=== PATIENT | female | born 1980 | race Caucasian/White ===

== ENCOUNTER → 2018-05-10 14:38 | Outpatient (CLI) | payer BC, SELFPAY ==
[2018-05-11 08:20] LABS: Alanine Aminotransferase 24 U/L (12-78); Albumin Level 3.8 gm/dL (3.4-5.0); Albumin/Globulin Ratio 1.3 (1.1-1.8); Alkaline Phosphatase 81 U/L (46-116); Anion Gap 16.9 mEq/L (5-15); Aspartate Amino Transferase 13 U/L (15-37); Basophils # 0.1 K/mm3 (0-0.2); Basophils % 0.5 % (0.1-2.0); Bilirubin,Total 0.4 mg/dL (0.2-1.0); Blood Urea Nitrogen 10 mg/dL (7-18); Carbon Dioxide 24 mmol/L (21.0-32.0); Chloride 103 mmol/L (98-107); Chol/HDL Ratio 5.2 (1-3.5); Cholesterol 145 mg/dL (140-200); Creatinine Clearance Estimated 176 mL/min (50-200); Creatinine,Serum 0.63 mg/dL (0.55-1.02); Eosinophils # 0.3 K/mm3 (0.0-0.4); Eosinophils % 2.2 % (0.1-12.0); Estimated Glomerular Filt Rate 105 ml/min (>60); GFR (African American) 127 ML/MIN (>60); Glucose 112 mg/dL (74-106); HDL Cholesterol 28 mg/dL (29-89); Hematocrit 44.6 % (37.0-47.0); Hemoglobin 13.9 g/dL (12.2-16.2); LDL Cholesterol 64 mg/dL (0-130); Lymphocytes # 3.1 K/mm3 (0.7-4.5); Mean Corpuscular Hemoglobin 29.7 pg (27.0-31.2); Mean Corpuscular Volume 95.6 fl (81-99); Mean Platelet Volume 8.5 fl (7.4-10.4); Monocytes # 0.5 K/mm3 (0.1-1.0); Monocytes % 4.4 % (1.7-9.3); Neutrophils # 7.3 K/mm3 (1.8-7.8); Neutrophils % 64.9 % (37.0-80.0); Platelet Count 358 K/mm3 (142-424); Potassium 3.9 mmoL/L (3.5-5.1); Red Blood Count 4.67 M/mm3 (4.20-5.40); Red Cell Distribution Width 13.3 % (11.5-17.5); Sodium 140 mmol/L (136-145); T4 (Thyroxine) 9.2 ug/dl (4.7-13.3); Thyroid Stimulating Hormone 2.23 uIU/ml (0.358-3.740); Total Protein,Serum 6.8 gm/dL (6.4-8.2); Triglycerides 263 mg/dL (30-200); VLDL Cholesterol 53 mg/dL (0-40); White Blood Count 11.2 K/mm3 (4.8-10.8)
[2018-05-12 11:45] LABS: Hemoglobin A1C 5.2 % (0.0-7.0)
[2018-05-13 17:08] LABS: Vitamin D 25 Hydroxy 13.8 ng/mL (30.0-100.0)
== END ==
PROVIDERS: PCP Physician Assistant; Visit Provider Physician Assistant
DX: R00.2 Palpitations (principal); R53.83 Other fatigue
CPT/HCPCS: 80053; 80061; 82652; 83036; 84436; 84443; 85025; 93005; 93225; 93226

== ENCOUNTER → 2018-07-15 18:41 | Outpatient (CLI) | payer BC, SELFPAY | PROVIDERS: PCP Physician Assistant; Visit Provider Physician Assistant | DX: G47.33 Obstructive sleep apnea (adult) (pediatric) (principal); R53.83 Other fatigue | CPT/HCPCS: 95806 ==

== ENCOUNTER → 2019-05-02 17:26 | Outpatient (CLI) | payer BC, SELFPAY ==
--- NOTE | 2019-05-02 17:37 | XR_ITS ---
PROCEDURE: XR CHEST 2V CLINICAL HISTORY: SOB COMPARISON: CXR2V XR chest 2V from 11/11/2017 FINDINGS: The cardiomediastinal silhouette and pulmonary vascularity are within normal limits. The lungs are clear without infiltrates, suspicious nodules, or pleural effusions. No acute bony abnormalities. IMPRESSION: No acute findings. Dictated by: Emery Zamudio MD 05/02/2019 18:26 Electronically signed by Emery Zamudio MD in [place] 05/02/2019 18:26
[2019-05-02 17:49] LABS: Basophils # 0.1 K/mm3 (0-0.2); Basophils % 0.4 % (0.1-2.0); Eosinophils # 0.4 K/mm3 (0.0-0.4); Hematocrit 40.5 % (37.0-47.0); Hemoglobin 14.2 g/dL (12.2-16.2); Lymphocytes % 30.4 % (10-50); Mean Corpuscular HGB Conc 35.1 g/dL (31.8-35.4); Mean Corpuscular Hemoglobin 30.5 pg (27.0-31.2); Mean Platelet Volume 7.5 fl (7.4-10.4); Monocytes # 0.6 K/mm3 (0.1-1.0); Monocytes % 4.4 % (1.7-9.3); Neutrophils # 8.1 K/mm3 (1.8-7.8); Neutrophils % 61.8 % (37.0-80.0); Platelet Count 345 K/mm3 (142-424); Red Blood Count 4.66 M/mm3 (4.20-5.40); Red Cell Distribution Width 13.1 % (11.5-17.5)
[2019-05-02 20:48] LABS: Alanine Aminotransferase 14 U/L (12-78); Albumin Level 3.6 gm/dL (3.4-5.0); Albumin/Globulin Ratio 1.3 (1.1-1.8); Alkaline Phosphatase 71 U/L (46-116); Anion Gap 15.9 mEq/L (5-15); Aspartate Amino Transferase 7 U/L (15-37); Bilirubin,Total 0.2 mg/dL (0.2-1.0); Blood Urea Nitrogen 12 mg/dL (7-18); Calcium 8.9 mg/dL (8.5-10.1); Carbon Dioxide 24 mmol/L (21.0-32.0); Chloride 104 mmol/L (98-107); Chol/HDL Ratio 5.9 (1-3.5); Cholesterol 154 mg/dL (140-200); Creatinine,Serum 0.74 mg/dL (0.55-1.02); Estimated Glomerular Filt Rate 86 ml/min (>60); GFR (African American) 105 ML/MIN (>60); Globulin 2.8 gm/dl (1.3-3.2); Glucose 115 mg/dL (74-106); HDL Cholesterol 26 mg/dL (29-89); Potassium 3.9 mmoL/L (3.5-5.1); Sodium 140 mmol/L (136-145); Thyroid Stimulating Hormone 2.61 uIU/ml (0.358-3.740); Total Protein,Serum 6.4 gm/dL (6.4-8.2)
[2019-05-02 20:50] LABS: Triglycerides 487 mg/dL (30-200)
[2019-05-05 06:27] LABS: Vitamin D 25 Hydroxy 12.4 ng/mL (30.0-100.0)
== END ==
PROVIDERS: Visit Provider Nurse Practitioner Family
DX: R53.83 Other fatigue (principal); R06.02 Shortness of breath; E55.9 Vitamin D deficiency, unspecified
CPT/HCPCS: 36415; 71046; 80053; 80061; 82652; 84439; 84443; 85025

== ENCOUNTER → 2019-06-02 09:10 | Outpatient (CLI) | payer BC, SELFPAY ==
--- NOTE | 2019-06-02 09:14 | XR_ITS ---
PROCEDURE: XR HAND RT MIN 3V CLINICAL INDICATION: Rt thumb trigger finger COMPARISON: No exams were available for comparison FINDINGS: No fracture or dislocation. No lytic or blastic change. There is normal mineralization. The joint spaces are well-preserved. No significant degenerative/arthritic changes. No erosive changes evident. Other findings:None. IMPRESSION: No acute findings. Dictated by: Emery Zamudio MD 06/02/2019 10:33 Electronically signed by Emery Zamudio MD in [place] 06/02/2019 10:33
== END ==
PROVIDERS: PCP Physician Assistant; Visit Provider Orthopaedic Surgery
DX: M65.311 Trigger thumb, right thumb (principal)
CPT/HCPCS: 73130

== ENCOUNTER → 2019-06-24 11:25 | Outpatient (CLI) | payer BC, SELFPAY ==
[2019-06-24 13:30] LABS: Hemoglobin A1C 5.4 % (4.0-6.0)
== END ==
PROVIDERS: Visit Provider Nurse Practitioner Family
DX: R73.9 Hyperglycemia, unspecified (principal)
CPT/HCPCS: 36415; 83036

== ENCOUNTER → 2022-04-22 10:49 | Outpatient (CLI) | payer BC, SELFPAY ==
--- NOTE | 2022-04-22 11:00 | XR_ITS ---
FINAL REPORT CLINICAL HISTORY: RT HIP PAIN. no trauma COMPARISON: November 11, 2017 FINDINGS: RIGHT HIP Two views of the right hip including an AP pelvis demonstrate no acute fracture or dislocation. The joint spaces appear normal. The visualized bony structures are well aligned. There are postoperative changes in the abdomen. IMPRESSION: No acute bony abnormality. Reviewed, Interpreted and Dictated by Davie Miller III, MD Transcribed by Clarisse Gordon Authenticated and [facility]
== END ==
LOC: RAD 10:54
PROVIDERS: PCP Family Medicine; Visit Provider Family Medicine
DX: M25.551 Pain in right hip (principal)
CPT/HCPCS: 73502

== ENCOUNTER → 2022-05-13 15:53 | Outpatient (CLI) | payer BC, SELFPAY ==
--- NOTE | 2022-05-13 16:02 | CT_ITS ---
PROCEDURE INFORMATION: Exam: CT Abdomen And Pelvis Without And With Contrast Exam date and time: 05/13/2022 6:13 PM Age: 42 years old Clinical indication: Abdominal pain; Localized; Right lower quadrant (rlq); Additional info: Lower R quad abdominal pain TECHNIQUE: Imaging protocol: Computed tomography of the abdomen and pelvis without and with contrast. Radiation optimization: All CT scans at this facility use at least one of these dose optimization techniques: automated exposure control; mA and/or kV adjustment per patient size (includes targeted exams where dose is matched to clinical indication); or iterative reconstruction. Contrast material: ISO 370; Contrast volume: 75 ml; Contrast route: INTRAVENOUS (IV); COMPARISON: CT ABDOMEN PELVIS WO CON 07/17/2019 3:58 AM FINDINGS: Tubes, catheters and devices: None noted. Lungs: Lung bases appear clear. Heart: No significant coronary calcifications. No cardiomegaly. No significant pericardial effusion. Liver: Normal. No mass. Gallbladder and bile ducts: Normal. No calcified stones. No ductal dilation. Pancreas: Normal. No ductal dilation. Spleen: Normal. No splenomegaly. Adrenal glands: Normal. No mass. Kidneys and ureters: Normal. No hydronephrosis. Stomach and bowel: Cecal diverticulitis. 5 cm phlegmonous area. No drainable abscess. No free peritoneal perforation. No obstruction. No mucosal thickening. Appendix: Appendix is well visualized. No evidence of appendicitis. Intraperitoneal space: Unremarkable. No free air. No significant fluid collection. Retroperitoneal space: No significant retroperitoneal inflammatory changes are noted. Vasculature: Unremarkable. No abdominal aortic aneurysm. Lymph nodes: Unremarkable. No enlarged lymph nodes. Urinary bladder: Unremarkable as visualized. Reproductive: Unremarkable as visualized. Bones/joints: Unremarkable. No acute fracture. Soft tissues: Hernia repair with mesh. IMPRESSION: 1. Cecal diverticulitis. No free peritoneal perforation or drainable abscess noted. 2. Umbilical hernia repair with mesh. 3. No CT evidence of appendicitis.
[2022-05-13 17:35] LABS: Basophils # 0.1 K/mm3 (0-0.2); Basophils % 0.6 % (0.1-2.0); Eosinophils # 0.4 K/mm3 (0.0-0.4); Eosinophils % 2.3 % (0.1-12.0); Hematocrit 43.5 % (37.0-47.0); Hemoglobin 14.6 g/dL (12.2-16.2); Lymphocytes # 3.6 K/mm3 (0.7-4.5); Lymphocytes % 21.2 % (10-50); Mean Corpuscular HGB Conc 33.6 g/dL (31.8-35.4); Mean Corpuscular Hemoglobin 30.2 pg (27.0-31.2); Mean Corpuscular Volume 90.1 fl (81-99); Mean Platelet Volume 7.9 fl (7.4-10.4); Monocytes % 5.8 % (1.7-9.3); Neutrophils # 11.8 K/mm3 (1.8-7.8); Neutrophils % 70.1 % (37.0-80.0); Platelet Count 390 K/mm3 (142-424); Red Blood Count 4.83 M/mm3 (4.20-5.40); Red Cell Distribution Width 13.5 % (11.5-17.5); White Blood Count 16.8 K/mm3 (4.8-10.8)
[2022-05-13 17:39] LABS: MANUAL DIFFERENTIAL MANUAL DIFFERENTIAL (MANUAL DIFF)
[2022-05-13 18:56] LABS: Eosinophils % 1 % (0-3); Lymphocytes % 26 % (10-50); Monocytes % 3 % (2-9); Neutrophils % 70 % (42-76); Platelet Estimate Normal; RBC Morphology Normal; Total Cells Counted 100
== END ==
LOC: RAD 15:54
PROVIDERS: PCP Family Medicine; Visit Provider Family Medicine
DX: R10.31 Right lower quadrant pain (principal)
CPT/HCPCS: 36415; 74178; 85007; 85025; Q9967

== ENCOUNTER 2022-07-19 11:38 | Emergency (ER) | payer BC, SELFPAY ==
--- NOTE | 2022-07-19 11:34 | ECG_ITS ---
APPROVED REPORT Exam: Resting ECG HR:95 bpm ECG Measurements Heart Rate 95 AXES FL 157 P 66 QRSd 86 QRS 67 QT 326 T 34 QTc 379 Conclusion SINUS RHYTHM NORMAL ECG UNCONFIRMED REPORT Electronically signed by : Phi Khan MD 07/21/2022 03:08:15
[2022-07-19 11:49] VITALS: BMI 34.0
--- NOTE | 2022-07-19 11:49 | XR_ITS ---
PROCEDURE INFORMATION: Exam: XR Chest Exam date and time: 07/19/2022 12:18 PM Age: 42 years old Clinical indication: Pain; Chest pressure; Additional info: Chest pain TECHNIQUE: Imaging protocol: Radiologic exam of the chest. Views: 1 view. COMPARISON: CR XR CHEST 2V 05/02/2019 5:39 PM FINDINGS: Lungs: Unremarkable. No consolidation. Pleural spaces: Unremarkable. No pleural effusion. No pneumothorax. Heart/Mediastinum: Cardiac silhouette appears borderline enlarged on this portable chest. Bones/joints: Unremarkable. IMPRESSION: Borderline cardiomegaly otherwise negative chest.
[2022-07-19 11:56] LABS: Basophils # 0.2 K/mm3 (0-0.2); Basophils % 1.9 % (0.1-2.0); Eosinophils # 0.6 K/mm3 (0.0-0.4); Eosinophils % 4.4 % (0.1-12.0); Hematocrit 45.4 % (37.0-47.0); Hemoglobin 15.9 g/dL (12.2-16.2); Lymphocytes # 3.3 K/mm3 (0.7-4.5); Lymphocytes % 26.6 % (10-50); Mean Corpuscular Hemoglobin 30.3 pg (27.0-31.2); Mean Corpuscular Volume 86.6 fl (81-99); Mean Platelet Volume 7.4 fl (7.4-10.4); Monocytes # 0.6 K/mm3 (0.1-1.0); Monocytes % 4.9 % (1.7-9.3); Neutrophils # 7.8 K/mm3 (1.8-7.8); Neutrophils % 62.2 % (37.0-80.0); Platelet Count 427 K/mm3 (142-424); Red Blood Count 5.24 M/mm3 (4.20-5.40); Red Cell Distribution Width 13.2 % (11.5-17.5); White Blood Count 12.5 K/mm3 (4.8-10.8)
[2022-07-19 11:57] LABS: Chloride 108 mmol/L (98-107); Potassium 4.2 mmoL/L (3.5-5.1); Sodium 140 mmol/L (136-145)
[2022-07-19 12:00] LABS: Blood Urea Nitrogen 11 mg/dl (7-17); Creatinine Clearance Estimated 170 mL/min (50-200); Estimated Glomerular Filt Rate 109 ml/min (>60); GFR (African American) 131 ML/MIN (>60)
[2022-07-19 12:01] LABS: Anion Gap 11.2 mEq/L (5-15); Calcium 9.5 mg/dl (8.4-10.2); Carbon Dioxide 25 mmol/L (22.0-30.0); Glucose 120 mg/dl (74-100)
[2022-07-19 12:02] VITALS: BP 209/133; PULSE 91; RESP 18; TEMP 36.8; O2SAT 98; BMI 34.0
[2022-07-19 12:13] LABS: Troponin I < 0.01 ng/ml (0.00-0.034)
--- NOTE | 2022-07-19 12:17 | CT_ITS ---
PROCEDURE INFORMATION: Exam: CT Head Without Contrast Exam date and time: 07/19/2022 12:36 PM Age: 42 years old Clinical indication: Pain; Other: Hypertensive headache; Additional info: Hypertensive urgency TECHNIQUE: Imaging protocol: Computed tomography of the head without contrast. Radiation optimization: All CT scans at this facility use at least one of these dose optimization techniques: automated exposure control; mA and/or kV adjustment per patient size (includes targeted exams where dose is matched to clinical indication); or iterative reconstruction. REPORTING DATA: Count of CT and Cardiac NM exams in prior 12 months: This patient has received [address] and 0 known cardiac nuclear medicine studies in the 12 months prior to the current study. COMPARISON: No relevant prior studies available. FINDINGS: Brain: Normal. No hemorrhage. No mass effect. Cortical sulci and white matter are unremarkable for age Cerebral ventricles: No ventriculomegaly. Paranasal sinuses: Visualized sinuses are unremarkable. No fluid levels. Mastoid air cells: Visualized mastoid air cells are well aerated. Bones/joints: Unremarkable. Soft tissues: Unremarkable. IMPRESSION: Normal CT examination of the head.
--- NOTE | 2022-07-19 12:35 | PC.NURSE ---
Pt to CT scan for head imaging
[2022-07-19 13:48] VITALS: BP 166/101; PULSE 77; RESP 14; TEMP 36.6; O2SAT 97
--- NOTE | 2022-07-19 14:03 | HMH.EDGENADL ---
Discharge Plan Disposition Patient Disposition: Home, Self-Care Condition: Fair Prescriptions Prescriptions: No Action ergocalciferol (vitamin D2) 1,250 mcg (50,000 unit) capsule 50,000 unit PO QWEEK Qty: 12 0RF cetirizine 10 MG tablet 10 mg PO DAILY fluticasone propionate 16 GM spray,suspension 1 spray intranasal QDAY Rx Instructions: administer into each nostril levofloxacin 500 MG tablet 500 mg PO DAILY Qty: 9 0RF Referrals Follow up/Referrals: Lon Suarez MD [Primary Care Provider] - See instructions Activity Restrictions/Add. Instructions Additional Instructions/Restrictions: Please call Dr. Suarez's office to talk about your blood pressure. Please take your blood pressure twice daily until you see them so that they can see if they need to start you on medication. Clinical Impressions Clinical Impression: Hypertension Instructions Patient Instructions: Essential Hypertension Discharge ED Provider: Edmund Varma General Adult HPI General Chief complaint: Chest Pain Stated complaint: CP Time Seen by Provider: 07/19/22 12:00 Mode of Arrival: Ambulatory Source of Information: Patient Limitations: No Limitations Description of Symptoms (Recalled from ER Triage Doc. by RN): Pt c/o awakening with severe headache this am, dizziness, left arm weakness and idiopathic hypertension; no significant PMHx, dx w +Strep on 07/15 History of Present Illness HPI narrative: Patient is a 42-year-old female with no pertinent past medical history who presents with concern for headache and dizziness. She states she also felt like her left arm was little weak at that time. She says that she was diagnosed with strep recently has been being treated for this. She says that she checked her blood pressure because she felt dizzy and her blood pressure was in the 200s so she came in for evaluation. She says that it is mildly improving. Denies any chest pain or shortness of breath. Denies any urinary symptoms. Denies any visual disturbance. Says that her left arm weakness has resolved. Related Data Home Medications Medication Instructions Recorded Confirmed cetirizine 10 mg tablet 10 mg PO DAILY allergies 06/19/19 06/30/19 fluticasone propionate 50 1 spray intranasal QDAY allergies 06/19/19 06/30/19 mcg/actuation nasal spray,suspension Previous Rx's Medication Instructions Recorded levofloxacin 500 mg tablet 500 mg PO DAILY #9 tabs 07/17/19 ergocalciferol (vitamin D2) 1,250 50,000 unit PO QWEEK Supplement 08/07/19 mcg (50,000 unit) capsule #12 caps Allergies Allergy/AdvReac Type Severity Reaction Status Date / Time sulfamethoxazole Allergy Mild Hives Verified 06/30/19 10:49 [From Bactrim] trimethoprim [From Bactrim] Allergy Mild Hives Verified 06/30/19 10:[facility] Disclaimer: The information contained in this section may have been updated after the patient was seen, as this information can be updated by other users. Medical History (Updated 07/19/22 @ 13:30 by Edmund Varma MD) Vitamin D deficiency Social History Smoking Status: Never smoker second hand exposure: Yes alcohol intake: never substance use type: denies use current occupational status: employed Travel in the last 8 weeks: None household members: spouse and family housing: house current occupation: [employer] caffeine: Yes ROS Obtained: Yes All systems reviewed & no additional complaints except as documented Physical Exam General General appearance: alert and in no apparent distress Head Head exam: atraumatic, normocephalic and normal inspection Eye Eye exam: Present normal appearance and PERRL ENT ENT exam: Present normal exam, mucous membranes moist and normal external ear exam Neck Neck exam: Present normal inspection and trachea midline Chest Chest inspection: Present normal inspection and symmetric chest wall rise Respiratory Respirator
== END 2022-07-19 13:49 | disposition home or self-care (01) ==
PROVIDERS: Emergency Provider Student in an Organized Health Care Education/Training Program; PCP Family Medicine
DX: R07.9 Chest pain, unspecified (principal); I10 Essential (primary) hypertension
CPT/HCPCS: 70450; 71045; 80048; 84484; 85025; 93005; 96360; 96374; 96375; 99285

== ENCOUNTER → 2022-07-28 13:04 | Outpatient (CLI) | payer BC, SELFPAY ==
--- NOTE | 2022-07-28 14:43 | CA_ITS ---
APPROVED REPORT Exam: Exercise Treadmill Technologist: Kaylie Crain, Ht: 5 ft 4 in Wt: 211 lbs BSA: 2.00 m2 HR: 108 bpm BP: 125/80 mmHg Medical History Medications: Losartan-HCTZ,,,,, Stress Test Details Test: Magdy HR Resting HR: 96 bpm Max Heart Rate (APMHR): 176.542992 bpm Max HR Achieved: 146 bpm Target HR (85% APMHR): 149.321130 bpm % of APMHR: 82.95 Recovery HR: 109 bpm BP Resting BP: 125.0/83.0 mmHg Max BP: 230.0/75.0 mmHg Recovery BP: 141.0/82.0 mmHg ECG Resting ECG: Sinus tach, rightward axis, ST-T abns inferiorly & laterally Clinical Exercise duration: 07:02 min Highest Stage Achieved: Exercise capacity: 10.1 METs Stress ECG Conclusion Walked 7:02 into stage III of Magdy Protocol Max HR: 146 % of PM: 83% Max BP: 230/75 METs: 10.1 Test stopped due to: SOA Symptoms: No CP. Arrhythmias/Ectopy: None. ST-T Changes: Compared to baseline there is minimal if any changes. Conclusion: Probably normal GXT but with decreased sensitivity due to baseline ECG abnormalaties. GXT only (no imaging) Test Summary REST . . . . . . . Sitting REST . . . . . . . Standing REST 10:38 0.0 0.0 96 . 125/ 83 . . Stage 1 01:00 10.0 1.7 111 . . . . Stage 1 02:00 10.0 1.7 119 . . . . Stage 1 03:00 10.0 1.7 121 . 196/ 80 . . Stage 2 01:00 12.0 2.5 127 . . . . Stage 2 02:00 12.0 2.5 131 . . . . Stage 2 03:00 12.0 2.5 135 . 230/ 75 . . Stage 3 01:00 14.0 3.4 145 . . . . Stage 3 01:02 14.0 3.4 145 . . . Stop exercise at 07:02 RECOVERY 01:00 0.0 0.0 133 . . . . RECOVERY 02:00 0.0 0.0 118 . . . . RECOVERY 03:00 0.0 0.0 113 . 119/ 80 . . RECOVERY 04:00 0.0 0.0 111 . 144/ 87 . . RECOVERY 05:00 0.0 0.0 108 . 141/ 82 . . RECOVERY 05:18 0.0 0.0 108 . 141/ 82 . . Electronically signed by : Joshua Bello MD 08/04/2022 08:44:09
== END ==
LOC: RT 13:04
PROVIDERS: PCP Nurse Practitioner Family; Visit Provider Nurse Practitioner Family
DX: R94.31 Abnormal electrocardiogram [ECG] [EKG] (principal); I10 Essential (primary) hypertension; E78.5 Hyperlipidemia, unspecified
CPT/HCPCS: 93017; 93306

== ENCOUNTER 2023-06-29 17:50 | Outpatient (CLI) | payer BC, SELFPAY | END 2023-06-29 23:59 | LOC: LAB.DROPOF 17:50 | PROVIDERS: PCP Student in an Organized Health Care Education/Training Program; Visit Provider Student in an Organized Health Care Education/Training Program | DX: M25.551 Pain in right hip (principal); M25.552 Pain in left hip; R05.9 Cough, unspecified; B96.89 Other specified bacterial agents as the cause of diseases classified elsewhere | CPT/HCPCS: 87086 ==

== ENCOUNTER 2023-10-23 14:28 | Emergency (ER) | payer BC, SELFPAY ==
[2023-10-23 14:40] VITALS: BP 149/96; PULSE 91; RESP 18; TEMP 36.6; O2SAT 95; BMI 34.0
--- NOTE | 2023-10-23 15:05 | ED_ITS ---
Discharge Plan Disposition Patient Disposition: Home, Self-Care Condition: Good Prescriptions Prescriptions: New phenazopyridine [Pyridium] 200 mg tablet 200 mg PO Q8H 2 Days Qty: 6 0RF ciprofloxacin HCl [Cipro] 500 mg tablet 500 mg PO BID 7 Days Qty: 14 0RF No Action phentermine 37.5 mg tablet 37.5 mg PO DAILY 30 Days Qty: 30 0RF Rx Instructions: must administer 30 minutes before or 1-2 hours after breakfast paroxetine HCl 12.5 mg tablet extended release 24 hr 12.5 mg PO DAILY 30 Days Qty: 30 2RF escitalopram oxalate 20 mg tablet 20 mg PO DAILY Referrals Follow up/Referrals: Charisma Vinson APRN [Primary Care Provider] - See instructions Activity Restrictions/Add. Instructions Additional Instructions/Restrictions: Drink plenty of fluids. Take tylenol or ibuprofen for pain or fever. Take the medications as directed. Follow up with your regular doctor. GO TO THE ER FOR ANY WORSENING SYMPTOMS The pyridium will make your urine turn orange, this is an expected side effect. It will stain your clothes if it comes into contact with them. We will culture the urine. That will tell what bacteria is causing your infection and which antibiotics will treat it best. Sometimes the first antibiotic we prescribe turns out to not work against different bacteria. So, make sure you follow up within 3 days if you are not getting better. Return by tomorrow if your symptoms are not improving. Clinical Impressions Clinical Impression: UTI (urinary tract infection) Qualifiers: Urinary tract infection type: acute cystitis Hematuria presence: without hematuria Qualified Code(s): N30.00 - Acute cystitis without hematuria Instructions Patient Instructions: Urinary Tract Infection, DI for Urinary Tract Infection (UTI) Discharge ED Provider: Shaan Estrella [facility] General Stated complaint: pain left side Mode of Arrival: Ambulatory Source of Information: Patient Limitations: No Limitations Time Seen by Provider: 10/23/23 15:01 Description of Symptoms (Recalled from Triage Doc. by RN): Pt's symptoms are left flank pain. HEENT Symptoms (Recalled from RN notes): No Resp Symptoms (Recalled from RN notes): No Skin Symptoms (Recalled from RN notes): No MS Symptoms (Recalled from RN notes): No Functional Status (Recalled from RN notes): n/a Related Data Home Medications Medication Instructions Recorded Confirmed escitalopram oxalate 20 mg tablet 20 mg PO DAILY 06/29/23 10/23/23 Previous Rx's Medication Instructions Recorded paroxetine HCl 12.5 mg 12.5 mg PO DAILY 30 days #30 tabs 08/27/23 tablet,extended release 24 hr phentermine 37.5 mg tablet 37.5 mg PO DAILY 30 days #30 tabs 08/27/23 ciprofloxacin HCl 500 mg tablet 500 mg PO BID 7 days #14 tabs 10/23/23 (Cipro) phenazopyridine 200 mg tablet 200 mg PO Q8H 2 days #6 tabs 10/23/23 (Pyridium) Allergies Allergy/AdvReac Type Severity Reaction Status Date / Time sulfamethoxazole Allergy Mild Hives Verified 10/23/23 14:58 [From Bactrim] trimethoprim [From Bactrim] Allergy Mild Hives Verified 10/23/23 14:58 cefdinir AdvReac Hypertensio Verified 10/23/23 14:58 n Worker's Comp Is this a Worker's Comp case?: No [facility] Disclaimer: The information contained in this section may have been updated after the patient was seen, as this information can be updated by other users. Medical History Fatigue HLD (hyperlipidemia) Abnormal electrocardiogram [ECG] [EKG] HTN (hypertension), benign Hypertension Pyelonephritis of left kidney Trigger finger of right thumb Vitamin D deficiency Pleurisy Trochanteric bursitis, right hip Surgical History No significant past surgical history Family History Other No significant family history Social History Smoking Status: Never smoker second hand exposure: Yes alcohol intake: never substance use type: denies use current occupational status: employed Travel in the last 8 weeks: None household members: spouse and family housing: house current occupation: [employer] caffeine: Yes ROS Obtained: Yes All systems reviewed & no additional complaints except as documented Constitutional Constitutional: Reports system reviewed and no additional complaints, except as documented, Denies chills and Denies fever(s) Eyes Eyes: Denies eye discharge ENT Ears, Nose, Mouth, and Throat: Denies dysphagia, Denies sore throat and Denies throat swelling Cardiovascular Cardiovascular: Denies chest pain and Denies dyspnea Respiratory Respiratory: Denies chest congestion, Denies cough and Denies dyspnea Gastrointestinal Gastrointestingal: Denies abdominal pain, constipation, diarrhea, dysphagia, nausea or vomiting Genitourinary Female Genitourinary: Reports as per HPI, Reports dysuria, Reports urinary frequency, Denies urinary incontinence, Reports urinary hesitancy and Reports urinary urgency Musculoskeletal Musculoskeletal: Denies arthralgias and Reports back pain Integumentary/Breasts Skin/Breast: Denies rash Neurologic Neurologic: Denies paresthesias Allergic/Immunologic Allergic/Immunologic: Denies throat swelling Physical Exam General General appearance: alert and in no apparent distress Head Head exam: atraumatic and normocephalic Eye Eye exam: Present normal appearance, PERRL and EOMI ENT ENT exam: Present normal exam, mucous membranes moist, TM's normal bilaterally and normal external ear exam Neck Neck exam: Present normal inspection, full ROM and trachea midline; Absent tenderness, meningismus or lymphadenopathy Chest Chest inspection: Present normal inspection and symmetric chest wall rise; Absent tenderness Respiratory Respiratory exam: Present normal lung sounds bilaterally; Absent respiratory distress, wheezes or stridor Cardiovascular Cardiovascular exam: Present regular rate, normal rhythm and normal heart sounds Abdominal Exam Abdominal exam: Present soft and normal bowel sounds; Absent distention, tenderness, guarding, rebound, rigidity, incision, psoas sign, obturator sign, heel tap sign, Felipe's sign, Rovsing's sign or tenderness at McBurney's Point Extremities Exam Extremities exam: Present normal inspection, full ROM and normal capillary refill; Absent tenderness, edema, joint swelling, calf tenderness or cyanosis Back Exam Back exam: Present normal inspection and full ROM; Absent tenderness, CVA tenderness (R) or CVA tenderness (L) Neurological Exam Neurological exam: Present alert, oriented X3 and normal gait Psychiatric Psychiatric exam: Present normal affect and normal mood Skin Skin exam: Present warm, dry, intact and normal color Lymphatic Lymphatic Findings: no adenopathy Medical Decision Making Medical Records Medical records reviewed: No I reviewed the patient's medical records. Brandon Inquiry Pt receiving controlled substance: No Vital Signs: 10/23/23 14:40 Temperature 97.9 F Temperature Source Oral Pulse Rate [Right Radial] 91 H Respiratory Rate 18 Blood Pressure [Right Arm] 149/96 H Blood Pressure Mean [Right Arm] 113 Blood Pressure Source [Right Arm] Automatic Cuff Blood Pressure Position [Right Arm] Sitting 02 Sat by Pulse Oximetry 95 Oxygen Delivery Method Room Air Lab Data Lab results reviewed: Yes I reviewed the patient's lab results.
--- NOTE | 2023-10-23 15:10 | PC.NURSE ---
Sent urine up to lab via tube system
[2023-10-23 15:11] LABS: Apearance,Urine Clear (Clear); Bilirubin,Urine 1+ (Negative); Blood, Urine Trace (Negative); Color,Urine Dark Yellow (Yellow); Glucose,Urine (UA) Negative (Negative); Ketones,Urine Negative (Negative); PH,Urine 5.5 (5.0-8.5); Protein,Urine 3+ (Negative); UTC Leukocyte Esterase,Urine Negative (Negative); UTC Nitrate,Urine Negative (Negative); Urobilinogen,Urine 0.2 EU/dl (0.2)
[2023-10-23] MEDS: levoFLOXacin 500MG TAB 500 MG PO (15:53)
[2023-10-23 15:55] VITALS: BP 149/96; PULSE 91; RESP 18; TEMP 36.6; O2SAT 95
== END 2023-10-23 15:55 | disposition home or self-care (01) ==
PROVIDERS: Emergency Provider Nurse Practitioner Family; PCP Nurse Practitioner Family
DX: N39.0 Urinary tract infection, site not specified (principal); B96.89 Other specified bacterial agents as the cause of diseases classified elsewhere; R10.32 Left lower quadrant pain; M54.59 Other low back pain
CPT/HCPCS: 81003; 87086; 99204; 99212; G0463

== ENCOUNTER 2023-10-25 13:08 | Outpatient (CLI) | payer BC, SELFPAY ==
[2023-10-25 13:10] LABS: Basophils # 0.1 K/mm3 (0-0.2); Eosinophils # 0.5 K/mm3 (0.0-0.4); Eosinophils % 3.3 % (0.1-12.0); Hematocrit 42.3 % (37.0-47.0); Hemoglobin 14.4 g/dL (12.2-16.2); Lymphocytes # 4.1 K/mm3 (0.7-4.5); Lymphocytes % 29.2 % (10-50); Mean Corpuscular HGB Conc 34.2 g/dL (31.8-35.4); Mean Corpuscular Hemoglobin 30.3 pg (27.0-31.2); Mean Corpuscular Volume 88.7 fl (81-99); Mean Platelet Volume 7.7 fl (7.4-10.4); Monocytes # 0.7 K/mm3 (0.1-1.0); Monocytes % 5.2 % (1.7-9.3); Neutrophils # 8.6 K/mm3 (1.8-7.8); Neutrophils % 61.3 % (37.0-80.0); Platelet Count 365 K/mm3 (142-424); Red Blood Count 4.76 M/mm3 (4.20-5.40); Red Cell Distribution Width 14.1 % (11.5-17.5)
[2023-10-25 14:06] LABS: Anion Gap 14.4 mEq/L (5-15); Blood Urea Nitrogen 19 mg/dl (7-17); Carbon Dioxide 25 mmol/L (22.0-30.0); Chloride 103 mmol/L (98-107); Estimated Glomerular Filt Rate 78 ml/min (>60); Potassium 4.4 mmoL/L (3.5-5.1); Sodium 138 mmol/L (136-145)
[2023-10-25 14:07] LABS: Alanine Aminotransferase 28 U/L (12-78); Albumin Level 4.1 g/dl (3.5-5.0); Albumin/Globulin Ratio 1.5 (1.1-1.8); Alkaline Phosphatase 93 U/L (38-126); Aspartate Amino Transferase 28 U/L (14-36); Bilirubin,Total 0.4 mg/dl (0.2-1.3); Calcium 10.1 mg/dl (8.4-10.2); GFR (African American) 94 ML/MIN (>60); Globulin 2.7 g/dL (1.3-3.2); Glucose 103 mg/dl (74-100); Total Protein,Serum 6.8 g/dl (6.3-8.2)
== END 2023-10-25 23:59 | disposition home or self-care (01) ==
LOC: LAB.DROPOF 13:08
PROVIDERS: PCP Nurse Practitioner Family; Visit Provider Nurse Practitioner Family
DX: R10.9 Unspecified abdominal pain (principal); R80.9 Proteinuria, unspecified; R53.83 Other fatigue
CPT/HCPCS: 80053; 85025; 87086

== ENCOUNTER 2023-10-26 14:32 | Outpatient (CLI) | payer BC, SELFPAY ==
--- NOTE | 2023-10-26 14:38 | CT_ITS ---
FINAL REPORT TECHNIQUE: Axial CT images of the abdomen and pelvis were obtained before and after the administration of IV contrast. Oral contrast was administered.This study was performed with techniques to keep radiation doses as low as reasonably achievable (ALARA). Individualized dose reduction techniques using automated exposure control or adjustment of mA and/or kV according to the patient''s size were employed. CLINICAL HISTORY: left flank pain COMPARISON: 05/13/2022 FINDINGS: Abdomen: The lung bases are clear. The heart is normal in size. The liver has an unremarkable appearance, without evidence of mass or biliary duct dilatation. The spleen is unremarkable. No adrenal masses present. The pancreas has an unremarkable appearance. There is moderate left renal scarring. There is a 10 mm cyst in the mid left kidney which is stable. No follow-up is recommended. The aorta is normal in caliber. There is no free fluid or adenopathy. No mass or abnormal fluid collection is seen. Precontrast images demonstrate no evidence of nephrolithiasis. There is mild vascular calcification. Postoperative changes are seen in the anterior abdomen wall. Pelvis: The appendix is normal. The urinary bladder is unremarkable. There is diffuse mild colon wall thickening, may represent mild colitis. There is no evidence of mass or adenopathy. There is no evidence of bowel obstruction. IMPRESSION: Possible mild colitis. Reviewed, Interpreted and Dictated by Davie Miller III, MD Transcribed by Gloria Narayanan Authenticated and [facility]
[2023-10-26] MEDS: IOPAMIDOL-370 (76%);100ML BOTTLE 75 ML IV (15:02)
[2023-10-26] MEDS: SODIUM CHLORIDE 0.9% 10ML SYR (RAD ONLY) 10 ML IV (15:02)
== END 2023-10-26 23:59 | disposition home or self-care (01) ==
LOC: RAD 14:33
PROVIDERS: PCP Nurse Practitioner Family; Visit Provider Nurse Practitioner Family
DX: R10.9 Unspecified abdominal pain (principal)
CPT/HCPCS: 74178; Q9967

== ENCOUNTER 2024-03-06 14:11 | Outpatient (CLI) | payer BC, SELFPAY ==
[2024-03-06 17:33] LABS: Basophils # 0.1 K/mm3 (0-0.2); Eosinophils # 0.4 K/mm3 (0.0-0.4); Eosinophils % 3.6 % (0.1-12.0); Hemoglobin 14.7 g/dL (12.2-16.2); Lymphocytes # 4.3 K/mm3 (0.7-4.5); Lymphocytes % 35.8 % (10-50); Mean Corpuscular Hemoglobin 30.1 pg (27.0-31.2); Mean Corpuscular Volume 85.9 fl (81-99); Mean Platelet Volume 8.3 fl (7.4-10.4); Monocytes # 0.7 K/mm3 (0.1-1.0); Monocytes % 5.5 % (1.7-9.3); Neutrophils # 6.4 K/mm3 (1.8-7.8); Neutrophils % 54.1 % (37.0-80.0); Platelet Count 354 K/mm3 (142-424); Red Blood Count 4.89 M/mm3 (4.20-5.40); Red Cell Distribution Width 14.2 % (11.5-17.5); White Blood Count 11.9 K/mm3 (4.8-10.8)
[2024-03-06 18:37] LABS: C-Reactive Protein 4.6 mg/L (0-4)
[2024-03-06 19:06] LABS: Thyroid Stimulating Hormone 1.89 uIU/mL (0.465-4.68)
[2024-03-06 19:10] LABS: Ferritin 157 ng/ml (6.24-137)
[2024-03-06 19:26] LABS: Vitamin B12 339 pg/mL (239-931)
[2024-03-07 12:29] LABS: Triiodothyronine (T3) Free 2.9 pg/mL (2.0-4.4)
[2024-03-07 16:23] LABS: EBV Ab VCA, IgM <36.0 U/mL (0.0-35.9); EBV Nuclear Antigen Ab, IgG >600.0 U/mL (0.0-17.9)
[2024-03-08 16:51] LABS: Peripheral Smear Review Scanned Result
== END 2024-03-06 23:59 | disposition home or self-care (01) ==
LOC: LAB.DROPOF 03-07 08:53
PROVIDERS: PCP Nurse Practitioner Family; Visit Provider Nurse Practitioner Family
DX: R53.83 Other fatigue (principal); D72.829 Elevated white blood cell count, unspecified
CPT/HCPCS: 82607; 82728; 84443; 84481; 85025; 86140; 86664; 86665

== ENCOUNTER 2024-04-14 14:26 | Outpatient (CLI) | payer BC, SELFPAY ==
[2024-04-14 12:36] LABS: Adenovirus,PCR Not Detected (NotDetected); Bordetella Pertussis Not Detected (NotDetected); Chlamydophila Pneumoniae, PCR Not Detected (NotDetected); Coronavirus 19, PCR Not Detected (NotDetected); Coronavirus 229E Not Detected (NotDetected); Coronavirus NL63 Not Detected (NotDetected); Coronavirus OC43 Not Detected (NotDetected); Coronovirus HKU1,PCR Not Detected (NotDetected); Human Metapneumovirus Not Detected (NotDetected); Influenza A, PCR Not Detected (NotDetected); Influenza AH1, 2009 Not Detected (NotDetected); Influenza AH1, PCR Not Detected (NotDetected); Influenza AH3,PCR Not Detected (NotDetected); Influenza B, PCR Not Detected (NotDetected); Mycoplasma Pneumoniae, PCR Not Detected (NotDetected); Parainfluenza 1, PCR Not Detected (NotDetected); Parainfluenza 2, PCR Not Detected (NotDetected); Parainfluenza 3, PCR Not Detected (NotDetected); Parainfluenza 4, PCR Not Detected (NotDetected); Respiratory Syncytial Virus Not Detected (NotDetected); Rhinovirus/Enterovirus Not Detected (NotDetected)
== END 2024-04-14 23:59 | disposition home or self-care (01) ==
LOC: LAB.DROPOF 14:27
PROVIDERS: PCP Nurse Practitioner Family; Visit Provider Nurse Practitioner Family
DX: R52 Pain, unspecified (principal); R50.9 Fever, unspecified; R09.81 Nasal congestion; R09.82 Postnasal drip; J34.89 Other specified disorders of nose and nasal sinuses
CPT/HCPCS: 87633

== ENCOUNTER 2024-05-29 15:48 | Outpatient (CLI) | payer SELFPAY ==
[2024-05-29 16:46] LABS: Coronavirus 19, PCR Not Detected (NotDetected); Human Rhinovirus Not Detected (NotDetected); Influenza A, PCR Not Detected (NotDetected); Influenza B, PCR Not Detected (NotDetected); Respiratory Syncytial Virus Not Detected (NotDetected)
== END 2024-05-29 23:59 | disposition home or self-care (01) ==
PROVIDERS: PCP Nurse Practitioner Family; Visit Provider Nurse Practitioner Family
DX: R05.1 Acute cough (principal)
CPT/HCPCS: 87631

== ENCOUNTER 2024-06-05 12:32 | Emergency (ER) | payer OTHER, SELFPAY ==
[2024-06-05 12:32] VITALS: BP 135/98; PULSE 86; RESP 18; TEMP 36.8; O2SAT 99; BMI 32.8
--- NOTE | 2024-06-05 12:59 | XR_ITS ---
FINAL REPORT CLINICAL HISTORY: pain, swelling after fall on 05/30 COMPARISON: None FINDINGS: RIGHT ANKLE 3 views of the right ankle were obtained. There is no acute fracture or dislocation. The mortise is intact. Visualized joint spaces are normally aligned. Soft tissues are unremarkable. IMPRESSION: No acute bony abnormality. Reviewed, Interpreted and Dictated by Katt Weldon MD Transcribed by Zainab aPtel Authenticated and [facility]
--- NOTE | 2024-06-05 12:59 | XR_ITS ---
FINAL REPORT CLINICAL HISTORY: pain, swelling after fall on 05/30 COMPARISON: None FINDINGS: RIGHT FOOT 3 views of the right foot were obtained. There is no acute fracture or dislocation. A moderate hallux valgus deformity is present. Soft tissues are unremarkable. There is a small calcaneal spur present. IMPRESSION: No acute bony abnormality. Reviewed, Interpreted and Dictated by Katt Weldon MD Transcribed by Zainab Patel Authenticated and [facility]
--- NOTE | 2024-06-05 13:14 | PC.NURSE ---
Pt has had xray, placed back into lobby
--- NOTE | 2024-06-05 13:39 | ED_ITS ---
Discharge Plan Disposition Patient Disposition: Home, Self-Care Prescriptions Prescriptions: No Action azithromycin [Zithromax Z-Stephen] 250 mg tablet See Rx Instructions PO .COMPLEX Qty: 6 0RF Rx Instructions: For 250 mg dose pack: take 500 mg today (day 1), then 250 mg for 4 days (days 2-5) PO albuterol sulfate 90 mcg/actuation HFA aerosol inhaler 2 puff inhalation Q4-6H PRN (Reason: shortness of breath or wheezing) Qty: 8.5 0RF paroxetine HCl 25 mg tablet extended release 24 hr See Rx Instructions .ROUTE .COMPLEX Qty: 30 11RF Dose Instruction: TAKE ONE TABLET BY MOUTH ONCE A DAY Rx Instructions: TAKE ONE TABLET BY MOUTH ONCE A DAY phentermine 37.5 mg tablet 37.5 mg PO DAILY Qty: 30 0RF Rx Instructions: must administer 30 minutes before or 1-2 hours after breakfast Referrals Follow up/Referrals: Charisma Vinson APRN [Primary Care Provider] - See instructions Activity Restrictions/Add. Instructions Additional Instructions/Restrictions: No evidence of an acute fracture or dislocation care is supportive as discussed including Tylenol ibuprofen ice rest. Clinical Impressions Clinical Impression: Foot pain, right Print Language Print Language: Turkish Discharge ED Provider: William Gonzalez General Adult HPI General Chief complaint: PAIN Stated complaint: R foot pain, a/o 2/4 Time Seen by Provider: 06/05/24 13:17 Mode of Arrival: Ambulatory Source of Information: Patient Limitations: No Limitations Description of Symptoms (Recalled from ER Triage Doc. by RN): PT states she tripped in her dining room on may 30. pt states she fell to the wood floor, and is now having right foot pain. right foot appears swollen. Rates pain as a 5/10 History of Present Illness HPI narrative: 44-year-old presents today with right foot pain she was walking up the stairs and fell at the top of the stairs injuring her right foot. No injuries elsewhere. Related Data Previous Rx's ?Medication ?Instructions ?Recorded albuterol sulfate 90 mcg/actuation 2 puff inhalation Q4-6H PRN 05/29/24 aerosol inhaler shortness of breath or wheezing #8.5 grams azithromycin 250 mg tablet See Rx Instructions PO .COMPLEX #6 05/29/24 (Zithromax Z-Stephen) tabs paroxetine HCl 25 mg See Rx Instructions .Route 05/31/24 tablet,extended release 24 hr .COMPLEX #30 tabs phentermine 37.5 mg tablet 37.5 mg PO DAILY #30 tabs 06/02/24 Allergies Allergy/AdvReac Type Severity Reaction Status Date / Time sulfamethoxazole (From Allergy Mild Hives Verified 05/29/24 14:57 Bactrim) trimethoprim (From Bactrim) Allergy Mild Hives Verified 05/29/24 14:57 cefdinir AdvReac Hypertensio Verified 05/29/24 14:57 n PFSH [facility] Disclaimer: The information contained in this section may have been updated after the patient was seen, as this information can be updated by other users. Medical History Fatigue HLD (hyperlipidemia) Abnormal electrocardiogram [ECG] [EKG] HTN (hypertension), benign Hypertension Pyelonephritis of left kidney Trigger finger of right thumb Vitamin D deficiency Pleurisy Trochanteric bursitis, right hip Surgical History No significant past surgical history Family History Other No significant family history Social History Smoking Status: Never smoker second hand exposure: Yes alcohol intake: never substance use type: denies use current occupational status: employed Travel in the last 8 weeks: None household members: spouse and family housing: house current occupation: [employer] caffeine: Yes Have you lived/traveled outside [place] in past 30 days?: No Contact w/someone who lives/traveled outside US past 30 days?: No Exposure to someone with infectious disease in past 14 days?: No Do you have a fever (greater than 100.4 F or 38 C)?: No Have you tested positive for COVID-19: No Exposed to someone with COVID-19 in past 14 days?: No Do you have a sore throat?: No Do you have a cough?: No Do you have any weakness?: No Do you have any diarrhea?: No Are you experiencing any unusual bleeding?: No Do you have any muscle aches/pain?: No Do you have any abdominal pain?: No Are you experiencing loss of taste or smell?: No Other Medical History Have you received the Flu Vaccine for this season: No Have you received the Pneumonia Vaccine: No ROS Obtained: Yes All systems reviewed & no additional complaints except as documented Physical Exam General General appearance: alert Respiratory Respiratory exam: Present normal lung sounds bilaterally Cardiovascular Cardiovascular exam: Present regular rate Extremities Exam Extremities exam: Present other (On the dorsal aspect of her right foot at the metatarsal phalangeal joints on the second third and fourth significant tenderness and soft tissue swelling neurovascular intact no injuries more proximally) Neurological Exam Neurological exam: Present alert and oriented X3 Medical Decision Making Medical Records Screening: Per USPSTF and CDC recommendations, given the prevalence of disease in our region, it is our hospital?s policy to screen for HIV and viral Hepatitis for all patients aged 18 and over and those with ongoing risk factors. Brandon Inquiry Pt receiving controlled substance: No Vital Signs: 06/05/24 12:32 Temperature 98.2 F Temperature Source Oral Pulse Rate [Right] 86 Respiratory Rate 18 Blood Pressure [Right Arm] 135/98 H Blood Pressure Mean [Right Arm] 110 Blood Pressure Source [Right Arm] Automatic Cuff Blood Pressure Position [Right Arm] Sitting 02 Sat by Pulse Oximetry 99 Oxygen Delivery Method Room Air Orders (Tests/Meds): ORDERS Category Date Time Status XR ankle RT min 3V Stat Exams 06/05/24 12:59 Completed XR foot RT min 3V Stat Exams 06/05/24 12:59 Completed Medical Decision Narrative: History and physical as above x-rays performed which I personally interpreted shows no evidence of any fractures or dislocation working diagnosis is a sprain. This she is able to bear weight without significant difficulty she will take ibuprofen ice to the area. Patient was discharged in stable condition. Critical Care Critical Care Time Critical Care Time: No
[2024-06-05 13:45] VITALS: BP 136/82; PULSE 77; RESP 16; TEMP 36.8; O2SAT 99
== END 2024-06-05 13:45 | disposition home or self-care (01) ==
PROVIDERS: Emergency Provider Student in an Organized Health Care Education/Training Program; PCP Nurse Practitioner Family
DX: M79.671 Pain in right foot (principal); W18.30XA Fall on same level, unspecified, initial encounter; Y93.89 Activity, other specified; Y92.008 Other place in unspecified non-institutional (private) residence as the place of occurrence of the external cause
CPT/HCPCS: 73610; 73630; 99283

== ENCOUNTER 2024-08-08 05:42 | Emergency (ER) | payer OTHER, SELFPAY ==
[2024-08-08] VITALS (8 sets, daily range): BP systolic 136–170; BP diastolic 97–121; PULSE 75–100; RESP 13–22; TEMP 36.6–36.7; O2SAT 98–100; BMI 33.1
--- NOTE | 2024-08-08 05:45 | CT_ITS ---
FINAL REPORT TECHNIQUE: Thin section axial images were obtained through the abdomen after intravenous contrast. Reconstruction images were obtained from the axial data. Exam was performed using dose reduction techniques. CLINICAL HISTORY: epigastric abd pain radiating to back COMPARISON: 10/26/2023 FINDINGS: The lung bases are clear. The liver is homogeneous. The gallbladder is mildly distended. There may be subtle gallbladder wall thickening. No stones identified. The spleen, adrenal glands, and pancreas are unremarkable. There is several left renal cysts. There is cortical scarring of the left kidney. There is mild left hydronephrosis. No obstructing stone is identified. There is no abdominal lymphadenopathy or ascites. The appendix is normal. There is long segment wall thickening of the descending colon, may represent mild colitis. There are postoperative changes from prior ventral hernia repair. The uterus and ovaries are unremarkable. There is no pelvic lymphadenopathy or ascites. No acute osseous abnormalities identified. IMPRESSION: Distention of the gallbladder with possible wall thickening. Consider follow-up ultrasound. Long segment wall thickening of the descending colon, may represent colitis. Reviewed, Interpreted and Dictated by Ivanna Dunn MD Transcribed by Gloria Narayanan Authenticated and [facility]
--- OUTSIDE RECORDS SUMMARY | 2024-08-08 05:47 | XMS_ITS | Continuity of Care Document ---
Author Organization [facility] Brandon Taylor Address [id number] [place] [id number] Assessment Encounter Date Assessment Date Assessment LastModified by Organization Details LastModified Time 07/28/2024 07/28/2024 This service was provided using telemedicine including synchronous audio and/or video-approved technology. The patient verbally Consents to telemedicine services, virtual check-ins and e-visits. The patient had a telemedicine consultation via Synchronous audio and video technology The patient is located in not in their homewhen receiving health services or health-related services through telecommunication technology. [email or web address] Not available 07/28/2024 16:00:16 Plan of Treatment Reminders Order Date Submit Date Provider Last Modified By Organization Details Last Modified Time Details Appointments None recorded. Lab None recorded. Referral None recorded. Procedures None recorded. Surgeries None recorded. Imaging None recorded. Medication Orders Vivelle-Dot 0.05 mg/24 hr transdermal patch 2024 025 [facility], [address] [place] [address], [id number], 18:11:26 progesteron e micronized 100 mg capsule 2024 025 [facility], [address] [place] [address], [id number], 18:11:26 Patient TargetsNo targets recorded. Patient Instructions Encounter Date Encounter Id Patient Instructions Last Modified By Organization Details Last Modified Time 07/28/202463940 We discussed the varied nature of symptoms that can accompany perimenopause or menopause. We discussed the physiology of these changes and how women can experience the same thing very differently. We explored alternatives to HRT including complementary medicine approaches such as acupuncture and herbal supplements. We talked about the lack of rigorous studies to go by, as well as risk of using supplements which are unregulated. Reviewed her specific risks in relation to hormone replacement therapy (smoking history specifically). Reviewed benefits of systemic hormones to bones, mood symptoms and for VSM symptoms. Reviewed the mixed data for dementia prevention. Reviewed that there is no set stop date for hormone therapy (and this is confirmed in the position statement from [facility]), and we continue it as long as it has perceived benefits that outweigh risks for the patient. Reviewed WHI study, E3N study from [facility]. We discussed that even in the WHI E2 replacement has no association with breast cancer, and is in fact associated with slightly decreased risk. This was shown again in the updated results released in [facility] in 2020 of the 18 year follow up. In terms of progesterone the WHI showed a slight increase in BrCA in patients taking MPA, however the study design had some serious flaws which bring those results into question. Additionally the 18 year follow up study of I showed slight increase in breast cancer incidence in those taking provera, but no increase in breast cancer mortality. Micronized progesterone seems in large population based studies (E3N from [facility]) not to carry as much risk of increased breast cancer out to 5 years, we don't have sufficient data beyond that yet to determine if the risk increases but that pathology studies show lack of proliferation of breast cells with micronized P as opposed to MPA. Given these facts I tend to use E2 and MP as primary HRT. We discussed CV risk, specifically VTE and NE/Stroke. We discussed that estrogen increases blood clotting, especially if given orally. Transdermal estrogen seems to have decreased VTE risk, though the data is not definitive on this. Given that fact I use transdermal E2 whenever possible. NE/Stroke risk is increased in WHI with CEE, but also women were sometimes >10 years post menopause in that study when started on HRT and adding risk of clotting to a CV already less pliable and with plaque will increase risk. It is generally recognized that there is a threshold of 5-10 years after which CV risk increases in starting HRT. If started before 5 years after LMP the data actually shows decreased CV mortality, decreased all cause mortality and even decreased colon cancer rates. Reviewed that systemic HRT is not generally recommended for sleep issues, cognition, skin dryness, although it's possible it could improve these issues. Reviewed other routes of administration and types of HRT and why we might use them. Reviewed with the patient whether progesterone is needed for uterine protection in her case and importance of using it as directed if it is. Smoking cessation was also highly encouraged. We will specifically revisit the libido issue and possible ADHD symptoms at her follow up visit. Some of these symptoms may improve with better sleep as well as adding hormone therapy. If not we will discuss other options for consideration. [email or web address] Not available 07/28/2024 16:15:06 Reason for Referral None Reported. Problems Name Problem SNOMED Code Status Onset Date Resolution Date Notes Provider Name and Address Organization Details Recorded Time Menopausal syndrome 059218160 Active 025 David morel [place] Juventino Taylor 14:05:42 Problem Notes None recorded. Procedures Surgical History Date Name Laterality Status Provider Name and Address Organization Details Recorded Time MENOPAUSE [place] [address] [place] [address] [address], [place], [address], [facility] - [place] 07/28/2024 16:11:02 4 Date of Last Pap Smear completed Not Available [facility] 07/26/2024 21:08:21 4 Date of Last Mammogram completed Not Available [facility] 07/26/2024 21:08:21 Imaging Results None recorded. Procedure Notes None recorded. Medical Equipment None Reported. Allergies Allergen ID Allergen Name Allergen Category Reaction Reaction Severity Criticality Documentation Date Start Date Code Code System Note Provider Name and Address Organization Details Recorded Time 4130 cefdinir medicatio n Not available Not available Not available 07/27/2024 04741 RxNorm ADDIE Irby 5 14:09:19 Medications Name Sig Start Date Stop Date Status Note LastModified by Organization Details LastModified Time phenazopyri dine 200 mg tablet TAKE 1 TABLET BY MOUTH EVERY 8 HOURS FOR 2 DAYS 07/27 completed Not Available Not Available Not Available phentermine 37.5 mg tablet TAKE 1 TABLET BY MOUTH ONCE DAILY ADMINISTE R 30MIN BEFORE OR 1-2 HOURS AFTER BREAKFAST 07/28 completed Not Available Not Available Not Available estradiol 0.05 mg/24 hr semiweekly transdermal patch APPLY 1 PATCH TO THE SKIN 2 TIMES a WEEK active Not Available Not Available No t Available ciprofloxac in 500 mg tablet TAKE 1 TABLET BY MOUTH TWICE DAILY FOR 7 DAYS 07/27 completed Not Available Not Available Not Available progesteron e micronized 100 mg capsule TAKE 1 CAPSULE BY MOUTH EVERY DAY active Not Available Not Available No t Available Vitals None Recorded Social History Question Answer Notes LastModified by Organizat ion Details LastModified Time Tobacco Smoking Status Not Available [facility] 07/26/2024 21:08:20 What Is Your Level Of Alcohol Consumption? Occasional [email or web address] Information not available 07/26/2024 Do You Or Have You Ever Used E-cigarettes Or Vape? Never Used Electronic Cigarettes [email or web address] Information not available 07/26/2024 Do You Use Any Illicit Or Recreational Drugs? No [email or web address] Information not available 07/26/2024 How Many Years Have You Smoked Tobacco? 25 [email or web address] Information not available 07/26/2024 Sex: Female Functional Status None recorded. Mental Status None recorded. Family History Relationship Description Onset Age of this Age Resolved Age Notes LastModified by Organization Details LastModified Time Mother Diabetes mellitus [email or web address] Not available 2024 21:08:17 Father Heart disease [email or web address] Not available 2024 21:08:17 Father Hypertensive disorder [email or web address] Not available 2024 21:08:17 Brother Hypertensive disorder [email or web address] Not available 2024 21:08:18 Medical History Condition Response Allergies (Food, seasonal, environmental ) N Other N Blood Transfusion N Drug/Latex Allergies/Reactions N Breast Cancer N Dermatologic Disorders N Lung Disease N Defects or Inherited Disease N Breast Problem N Gestational Diabetes N Hematologic disorders N Anesthesia Complications N History of STI N Deep Vein Thrombosis N Polycystic ovary syndrome N Anxiety Disorder N Autoimmune disease N Arthritis N Infertility N Polyps N History of abnormal pap N Acid Reflux (GERD) N Cancer N Varicosities N Stroke N Neurologic/Epilepsy N Endometriosis N High Cholesterol N Headaches N Fibromyalgia N Kidney Disease N Heart Problems N Thyroid Problems N Kidney or Bladder Problems N GI Problems N Acne N Eating Disorder N Anemia N Art (IVF or FET) N Psychiatric Illness N Diabetes N Ovarian Cancer N Pulmonary (TB, Asthma) N Hepatitis/Liver Disease N Eczema N Abuse/Domestic Violence N Asthma N Trauma/Violence N Depression/ depression N Heart Disease N Pre-Eclampsia N Hypertension N Osteoporosis N Thrombophilias N Gynecological History Statement/Question Response Abnormal Pap N If Post Menopausal, Age at Menopause 43 Date of Last Mammogram 05/08/2023 Post Menopausal Bleeding N Date of Last Pap Smear 02/26/2024 Current Control Method None LMP Hormone Replacement Therapy N Obstetrics History GPAL:G 3 P 3 0 0 3 Type Value Full Term 3 Living 3 Total 3 Past Encounters Encounter ID Performer Location Encounter Start Date Encounter Closed Date Diagnosis/Indication Diagnosis SNOMED-CT Code Diagnosis ICD10 Code Diagnosis Note [id number] LUIS [place]TMAN [place] [address] [place] [address] [facility],[address] [address] 07/26/2024 21:09:10 08/01/2024 13:58:43 Depression screening 607292785 Z13.31 Reviewed the completed PHQ-9 questionna yoana, which quantitati vely assesses the presence and severity of depressive symptoms. The patient's total score was calculated and discussed. Interpreta tion of Results:Ne gative (Score indicates no depression ): The PHQ-9 results indicated no significan t depressive symptoms at this time. Based on the assessment , no further management for depression is required. Menopausal syndrome [id number] N95.1 {{yes* no not applicable }} The patient is up to date on pap screening. {{yes* no not applicable }} The patient is up to date on mammo screening. {{yes no* not applicable }} The patient is up to date on colon cancer screening. {{yes no n ot applicable *}} The patient is up to date on DEXA screening. Health Concerns Section Related Observation LastModified by Organization Detai ls LastModified Time None Recorded Concern Status LastModified by Organization Details LastModified Time None Recorded Payers Encounter Date Sequence Insurance Name Policy Number Policy Mcdaniels Covered Member ID [id number] Member ID Guarantor Name 07/28/2024 1 [facility] [id number] Henna Vang [id number] Henna Vang Notes Date Note Type Note Provider Name and Address Organization Details Recorded Time 07/28/2024 text/html 44 y/o postmenopausal female with LMP 11/2022 presents c/o severe, bothersome symptoms that are interfering with her relationships and her ability to work, including:Mood swings with frequent crying, angerHot flashesNight sweats 6-7x/nightInsomnia, difficulty falling asleepWeight gainDifficulty concentrating/stayin g on task at workDecreased libido These symptoms have gotten worse in the past year. She saw her GP who prescribed paroxetine, but it did not help her symptoms at all and she didn't like the way she felt on this medication. She does not feel depressed in general, but she also started seeing a therapist to help with some of [place] [address] [address] [address], [place], [address], [place] 07/28/2024 16:15:53 OBGyn Episode No OBEpisode recorded.
--- OUTSIDE RECORDS SUMMARY | 2024-08-08 05:47 | XMS_ITS | Data Portability ---
Author Organization [facility] Brandon Taylor Address [address] [place] [id number] Assessment Encounter Date Assessment Date Assessment LastModified [...] services or health-related services through telecommunication technology. [email or web address] Not available 07/28/2024 16:00:16 Plan of Treatment Reminders Order Date Submit Date Provider Last Modified By Organization Details Last Modified Time Details Appointments None recorded. Lab None recorded. Referral None recorded. Procedures None recorded. Surgeries None recorded. Imaging None recorded. Medication Orders Vivelle-Dot 0.05 mg/24 hr transdermal patch 2024 025 [facility], [address] [place] [address], [id number], 18:11:26 progesteron e micronized 100 mg capsule 2024 025 [facility], [address] [place] [address], [id number], 18:11:26 Patient TargetsNo targets recorded. Patient Instructions Encounter Date Encounter Id Patient Instructions Last Modified By Organization Details Last Modified Time 07/28/2024 [id number] We discussed the varied nature of symptoms [...] patient. Reviewed WHI study, E3N study from [facility]. We discussed that even in the WHI [...] in large population based studies (E3N from [facility]) not to carry as much risk of [...] We discussed CV risk, specifically VTE and RI/Stroke. We discussed that estrogen increases blood clotting, especially if given orally. Transdermal estrogen seems to have decreased VTE risk, though the data is not definitive on this. Given that fact I use transdermal E2 whenever possible. RI/Stroke risk is increased in WHI with CEE, [...] we will discuss other options for consideration. [email or web address] Not available 07/28/2024 16:15:06 Reason for Referral None Reported. Problems Name Problem SNOMED Code Status Onset Date Resolution Date Notes Provider Name and Address Organization Details Recorded Time Menopausal syndrome [id number] Active 025 David morel [place] Juventino Taylor 14:05:42 Problem Notes None recorded. Procedures Surgical History Date Name Laterality Status Provider Name and Address Organization Details Recorded Time MENOPAUSE [place] [address] [place] [address] [facility] [address], [place], [phone], [facility] 07/28/2024 16:11:02 4 Date of Last Pap Smear completed Not Available [facility] 07/26/2024 21:08:21 4 Date of Last Mammogram completed Not Available [facility] 07/26/2024 21:08:21 Imaging Results None recorded. Procedure Notes None recorded. Medical Equipment None Reported. Allergies Allergen ID Allergen Name Allergen Category Reaction Reaction Severity Criticality Documentation Date Start Date Code Code System Note Provider Name and Address Organization Details Recorded Time 4130 cefdinir medicatio n Not available Not available Not available 07/27/2024 33942 RxNorm ADDIE Irby 5 14:09:19 Medications Name [...] LastModified Time Tobacco Smoking Status Not Available [facility] 07/26/2024 21:08:20 What Is Your Level Of [...] (Food, seasonal, environmental ) N Other N Drug/Latex Allergies/Reactions N Breast Cancer N Blood Transfusion N Dermatologic Disorders N Lung Disease N Defects or Inherited Disease N Breast Problem N Gestational Diabetes N Hematologic disorders N Anesthesia Complications N History of STI N Deep Vein Thrombosis N Polycystic ovary syndrome N Anxiety Disorder N Autoimmune disease N Arthritis N Polyps N Infertility N Acid Reflux (GERD) N History of abnormal pap N Cancer N Varicosities N Stroke N Neurologic/Epilepsy N Endometriosis N High Cholesterol N Fibromyalgia N Headaches N Kidney Disease N Heart Problems N Thyroid Problems N Kidney or Bladder Problems N GI Problems N Acne N Eating Disorder N Anemia N Art (IVF or FET) N Psychiatric Illness N Ovarian Cancer N Diabetes N Pulmonary (TB, Asthma) N Hepatitis/Liver Disease [...] SNOMED-CT Code Diagnosis ICD10 Code Diagnosis Note [id number] LUIS P[place]TMAN [place] [address] [place] [address] [facility],[address] [phone] 07/26/2024 21:09:10 08/01/2024 13:58:43 Depression screening [id number] Z13.31 Reviewed the completed PHQ-9 questionna yoana, which quantitati vely assesses the presence and severity of depressive symptoms. The patient's total score was calculated and discussed. Interpreta tion of Results:Ne gative (Score indicates no depression ): The PHQ-9 results indicated no significan t depressive symptoms at this time. Based on the assessment , no further management for depression is required. Menopausal syndrome [id number] N95.1 {{yes* no not applicable }} The [...] by Organization Details LastModified Time None Recorded Advance Directives Directive None Recorded Payers Encounter Date Sequence Insurance Name Policy Number Policy Mcdaniels Covered Member ID Mcdaniels Member ID Guarantor Name 07/28/2024 1 [facility] [id number] Henna Vang [id number] Henna Vang Notes Date Note Type Note [...] of [place]. [place] [address] [place] [address] [address], [place], [phone], [facility] - [place] 07/28/2024 16:15:53 OBGyn Episode No OBEpisode recorded.
--- NOTE | 2024-08-08 05:48 | XR_ITS ---
FINAL REPORT CLINICAL HISTORY: epigastric pain radiating to back COMPARISON: 07/19/2022 FINDINGS: A portable view of the chest was obtained. Cardiac and mediastinal silhouettes are within normal limits. The lungs are clear. There is no pleural effusion or pneumothorax. IMPRESSION: No acute process on this portable exam. Reviewed, Interpreted and Dictated by Ivanna Dunn MD Transcribed by Gloria Narayanan Authenticated and [facility]
--- NOTE | 2024-08-08 06:00 | ECG_ITS ---
APPROVED REPORT Exam: Resting ECG HR:92 bpm ECG Measurements Heart Rate 92 AXES NE 164 P 65 QRSd 85 QRS 79 QT 344 T 35 QTc 394 Conclusion SINUS RHYTHM NORMAL ECG Electronically signed by : MARISELA GUZMAN, 08/08/2024 14:57:25
[2024-08-08 06:02] LABS: Basophils # 0.1 K/mm3 (0-0.2); Basophils % 0.6 % (0.1-2.0); Eosinophils # 0.5 K/mm3 (0.0-0.4); Eosinophils % 3.2 % (0.1-12.0); Hematocrit 40.3 % (37.0-47.0); Hemoglobin 14.1 g/dL (12.2-16.2); Lymphocytes # 4.9 K/mm3 (0.7-4.5); Lymphocytes % 30.2 % (10-50); Mean Corpuscular Volume 85.7 fl (81-99); Mean Platelet Volume 9.4 fl (7.4-10.4); Monocytes # 1.2 K/mm3 (0.1-1.0); Monocytes % 7.3 % (1.7-9.3); Neutrophils # 9.4 K/mm3 (1.8-7.8); Neutrophils % 58.1 % (37.0-80.0); Nucleated Red Blood Cells # 0 10^3/uL; Nucleated Red Blood Cells % 0 %; Platelet Count 374 K/mm3 (142-424); Red Cell Distribution Width 13.2 % (11.5-17.5); Red Cell Distribution Width-SD 41.2 fL; White Blood Count 16.2 K/mm3 (4.8-10.8)
[2024-08-08 06:08] LABS: MANUAL DIFFERENTIAL MANUAL DIFFERENTIAL (MANUAL DIFF)
--- NOTE | 2024-08-08 06:08 | HMH.EDGENADL ---
Discharge Plan Disposition Patient Disposition: Home, Self-Care Condition: Good Prescriptions Prescriptions: New ondansetron 4 mg tablet,disintegrating 4 mg PO Q8H PRN (Reason: nausea and vomiting) 5 Days Qty: 10 0RF No Action azithromycin [Zithromax Z-Stephen] 250 mg tablet See Rx Instructions PO .COMPLEX Qty: 6 0RF Rx Instructions: For 250 mg dose pack: take 500 mg today (day 1), then 250 mg for 4 days (days 2-5) PO albuterol sulfate 90 mcg/actuation HFA aerosol inhaler 2 puff inhalation Q4-6H PRN (Reason: shortness of breath or wheezing) Qty: 8.5 0RF paroxetine HCl 25 mg tablet extended release 24 hr See Rx Instructions .ROUTE .COMPLEX Qty: 30 11RF Dose Instruction: TAKE ONE TABLET BY MOUTH ONCE A DAY Rx Instructions: TAKE ONE TABLET BY MOUTH ONCE A DAY phentermine 37.5 mg tablet 37.5 mg PO DAILY Qty: 30 0RF Rx Instructions: must administer 30 minutes before or 1-2 hours after breakfast Referrals Follow up/Referrals: Davie Jacob MD [Staff Physician] - See instructions Charisma Vinson APRN [Primary Care Provider] - See instructions Activity Restrictions/Add. Instructions Additional Instructions/Restrictions: As we discussed, it appears that your pain is due to gallstones. I have placed a referral to the general surgeon, and written a prescription for nausea medication as we discussed. Please return with any new or worsening symptoms. Clinical Impressions Clinical Impression: Cholelithiasis, Abdominal pain, RUQ (right upper quadrant) Instructions Patient Instructions: DI for Acute Abdominal Pain Print Language Print Language: Moldovan Discharge ED Provider: David Stokes General Adult HPI <Wilner Jackson MD - Last Filed: 08/08/24 06:46> General Chief complaint: Abdominal Pain Stated complaint: upper abd pain, radiates to back Time Seen by Provider: 08/08/24 05:45 Mode of Arrival: Ambulatory Source of Information: Patient Description of Symptoms (Recalled from ER Triage Doc. by RN): patient c/o upper abdominal pain that started last night and radiates to the back. patient states it felt like indigestion and she took Tums with no relief. denies any history. denies N/V/D. History of Present Illness HPI narrative: 44-year-old female who reports she is currently on estradiol and progesterone for menopause symptoms presents to the ER with upper abdominal pain radiating to the back. Patient reports the pain started around 8 PM last night. Prior to the pain starting she had eaten pizza for dinner. She states she has never had pain like this in the past, she describes it as a deep pain that radiates through to the back. She also describes it in the right upper quadrant. She reports she has no history of abdominal surgeries. She took Michelle-Thompson to try to relieve her symptoms without success. She also took Tylenol without improvement of symptoms. Patient reports nausea but no vomiting. She states the pain occasionally woke her up overnight and this morning she decided to get it checked out since it was still persistent. She reports no personal cardiac history, no vomiting or diarrhea, no fevers, chills, chest pain, difficulty breathing, dysuria, hematuria, or other associated symptoms. Patient denies alcohol use. Related Data Previous Rx's ?Medication ?Instructions ?Recorded albuterol sulfate 90 mcg/actuation 2 puff inhalation Q4-6H PRN 05/29/24 aerosol inhaler shortness of breath or wheezing #8.5 grams azithromycin 250 mg tablet See Rx Instructions PO .COMPLEX #6 05/29/24 (Zithromax Z-Stephen) tabs paroxetine HCl 25 mg See Rx Instructions .Route 05/31/24 tablet,extended release 24 hr .COMPLEX #30 tabs phentermine 37.5 mg tablet 37.5 mg PO DAILY #30 tabs 06/02/24 ondansetron 4 mg disintegrating 4 mg PO Q8H PRN nausea and 08/08/24 tablet vomiting 5 days #10 tabs Allergies Allergy/AdvReac Type Severity Reaction Status Date / Time sulfamethoxazole (From Allergy Mild Hives Verified 05/29/24 14:57 Bactrim) trimethoprim (From Bactrim) Allergy Mild Hives Verified 05/29/24 14:57 cefdinir AdvReac Hypertensio Verified 05/29/24 14:57 n PFSH <Wilner Jackson MD - Last Filed: 08/08/24 06:46> PFS Disclaimer: The information contained in this section may have been updated after the patient was seen, as this information can be updated by other users. Medical History Fatigue HLD (hyperlipidemia) Abnormal electrocardiogram [ECG] [EKG] HTN (hypertension), benign Hypertension Pyelonephritis of left kidney Trigger finger of right thumb Vitamin D deficiency Pleurisy Trochanteric bursitis, right hip Surgical History No significant past surgical history Family History Other No significant family history Social History Smoking Status: Current every day smoker tobacco type: cigarettes packs per day: 1 second hand exposure: Yes alcohol intake: never substance use type: denies use current occupational status: employed Travel in the last 8 weeks: None household members: spouse and family housing: house current occupation: [employer] caffeine: Yes Have you lived/traveled outside [place] in past 30 days?: No Contact w/someone who lives/traveled outside US past 30 days?: No Exposure to someone with infectious disease in past 14 days?: No Do you have a fever (greater than 100.4 F or 38 C)?: No Have you tested positive for COVID-19: No Exposed to someone with COVID-19 in past 14 days?: No Do you have a sore throat?: No Do you have a cough?: No Do you have any weakness?: No Do you have any diarrhea?: No Are you experiencing any unusual bleeding?: No Do you have any muscle aches/pain?: No Do you have any abdominal pain?: Yes Are you experiencing loss of taste or smell?: No Other Medical History Have you received the Flu Vaccine for this season: No Have you received the Pneumonia Vaccine: No <Wilenr Jackson MD - Last Filed: 08/08/24 06:46> ROS Obtained: Yes Systems reviewed as appropriate & no additional complaints except as documented Per HPI Physical Exam <Wilner Jackson MD - Last Filed: 08/08/24 06:46> General General appearance: alert and in no apparent distress Head Head exam: atraumatic and normocephalic Eye Eye exam: Present PERRL and EOMI ENT ENT exam: Present mucous membranes moist Neck Neck exam: Present normal inspection and full ROM Chest Chest inspection: Present symmetric chest wall rise Respiratory Respiratory exam: Present normal lung sounds bilaterally; Absent respiratory distress, wheezes or stridor Cardiovascular Cardiovascular exam: Present regular rate and normal rhythm Abdominal Exam Abdominal exam: Present soft, tenderness (Epigastric, right upper quadrant) and guarding (Voluntary); Absent distention, rebound or rigidity Extremities Exam Extremities exam: Present full ROM Back Exam Back exam: Absent CVA tenderness (R) or CVA tenderness (L) Neurological Exam Neurological exam: Present alert and oriented X3; Absent motor sensory deficit Psychiatric Psychiatric exam: Present normal affect and normal mood Skin Skin exam: Present warm and dry Medical Decision Making <Wilner Jackson MD - Last Filed: 08/08/24 06:46> Medical Records Medical records reviewed: Yes I reviewed the patient's medical records. Screening: Per USPSTF and CDC recommendations, given the prevalence of disease in our region, it is our hospital?s policy to screen for HIV and viral Hepatitis for all patients aged 18 and over and those with ongoing risk factors. MR Comment: Patient's most recent visit in our system is from May 2024 with Marva Vinson. Patient was doing well on phentermine for weight loss but was complaining of cough, chest congestion. Patient was diagnosed with bronchitis and started on azithromycin and albuterol. Brandon Inquiry Pt receiving controlled substance: No Vital Signs: 08/08/24 05:56 08/08/24 06:00 08/08/24 07:20 Temperature 98.0 F Temperature Source Oral Pulse Rate 95 H 85 Pulse Rate [Left] 100 H Respiratory Rate 18 13 Blood Pressure 170/121 H 136/98 H Blood Pressure [Right Arm] 170/115 H Blood Pressure Mean [Right Arm] 133 Blood Pressure Source Blood Pressure Source [Right Arm] Automatic Cuff Blood Pressure Position 02 Sat by Pulse Oximetry 100 98 100 Oxygen Delivery Method Room Air Room Air 08/08/24 07:31 08/08/24 08:15 08/08/24 08:30 Temperature Temperature Source Pulse Rate 84 75 92 H Pulse Rate [Left] Respiratory Rate 13 22 20 Blood Pressure 151/97 H 165/106 H 155/102 H Blood Pressure [Right Arm] Blood Pressure Mean [Right Arm] Blood Pressure Source Blood Pressure Source [Right Arm] Blood Pressure Position 02 Sat by Pulse Oximetry 100 99 100 Oxygen Delivery Method Room Air 08/08/24 09:00 08/08/24 09:20 Temperature 97.9 F Temperature Source Oral Pulse Rate 91 H Pulse Rate [Left] Respiratory Rate 20 17 Blood Pressure 157/110 H 156/98 H Blood Pressure [Right Arm] Blood Pressure Mean [Right Arm] Blood Pressure Source Automatic Cuff Blood Pressure Source [Right Arm] Blood Pressure Position Sitting 02 Sat by Pulse Oximetry 100 Oxygen Delivery Method Room Air Room Air Lab Data Lab Results 08/08/24 05:54: WBC 16.2 H, RBC 4.70, Hgb 14.1, Hct 40.3, MCV 85.7, MCH 30.0, MCHC 35.0, RDW 13.2, Plt Count 374, MPV 9.4, Neut % (Auto) 58.1, Lymph % (Auto) 30.2, [place] % (Auto) 7.3, Eos % (Auto) 3.2, Baso % (Auto) 0.6, Neut # (Auto) 9.4 H, Lymph # (Auto) 4.9 H, [place] # (Auto) 1.2 H, Eos # (Auto) 0.5 H, Baso # (Auto) 0.1, Total Counted 100, Neutrophils % (Manual) 53, Lymphocytes % (Manual) 36, Monocytes % (Manual) 7, Eosinophils % (Manual) 4 H, Platelet Estimate Normal, RBC Morphology Normal, PT 9.4 L, INR 0.82 L, Sodium 137, Potassium 4.0, Chloride 106, Carbon Dioxide 23, Anion Gap 12.0, BUN 13, Creatinine 0.60, Estimated Creat Clear 162, Estimated GFR 108, Est GFR ( Amer) 130, Glucose 132 H, Calcium 9.3, Total Bilirubin 0.3, AST 40 H, ALT 42, Alkaline Phosphatase 100, Troponin I < 0.01, C-Reactive Protein 3.7, Total Protein 7.0, Albumin 4.0, Globulin 3.0, Albumin/Globulin Ratio 1.3, Lipase 136, HCG, Quant < 2 08/08/24 06:15: Urine Color Yellow, Urine Appearance Sl cloudy, Urine pH 6.0, Ur Specific [place] 1.025, Urine Protein Trace, Urine Glucose (UA) Negative, Urine Ketones Negative, Urine Blood 1+ A, Urine Nitrate Negative, Urine Bilirubin Negative, Urine Urobilinogen 0.2, Ur Leukocyte Esterase 1+ A, Urine RBC None, Urine WBC 5-10, Ur Squamous Epith Cells 50-100, Amorphous Sediment Trace, Urine Bacteria 2+ 08/08/24 05:54 08/08/24 05:54 Orders (Tests/Meds): ED MEDICATIONS Discontinued Medications Generic Name Dose Route Start Last Admin Trade Name Kalq PRN Reason Stop Dose Admin Lactated Ringer's 1,000 mls @ 999 mls/hr 08/08/24 06:08 08/08/24 06:13 Lactated Ringer's 1000 Ml Bag IV 08/08/24 07:08 999 mls/hr .Q1H1M ONE Administration Iopamidol 75 ml 08/08/24 07:07 08/08/24 07:08 Iopamidol-370 (76%);100ml Bottle IV 08/08/24 07:08 75 ml ONCE ONE Administration Ondansetron HCl 4 mg 08/08/24 06:08 08/08/24 06:13 Ondansetron 4mg/2ml Vial IV 08/08/24 06:09 4 mg ONCE ONE Administration Sodium Chloride 10 ml 08/08/24 07:07 08/08/24 07:08 Sodium Chloride 0.9% 10ml Syr (Rad Only) IV 08/08/24 07:08 10 ml ONCE ONE Administration ORDERS Category Date Time Status CT abdomen pelvis w con Stat Cat Scan 08/08/24 05:45 Completed CXR --portable [XR chest portable] Stat Exams 08/08/24 05:48 Completed POCUS Point of Care (ER Only) Stat Exams 08/08/24 06:08 Completed C-Reactive Protein Stat Lab 08/08/24 05:54 Completed Complete Blood Count Auto Diff Stat Lab 08/08/24 05:54 Completed Comprehensive Metabolic Panel Stat Lab 08/08/24 05:54 Completed HCG,Quantitative Stat Lab 08/08/24 05:54 Completed Lipase Stat Lab 08/08/24 05:54 Completed Prothrombin Time INR Stat Lab 08/08/24 05:54 Completed Troponin I Stat Lab 08/08/24 05:54 Completed Urinalysis and Microscopic Stat Lab 08/08/24 06:15 Completed Urine Culture Stat Micro 08/08/24 06:15 Received HEART Score History (anamnesis): Slightly suspicious ECG: Normal Age: 45-65 years Risk factors: 1-2 risk factors Troponin: </= normal limit HEART Score: 2 Medical Decision Narrative: In summary, this 44-year-old female with comorbidities described in the HPI presents to the emergency department today with concerns of epigastric and right upper quadrant abdominal pain radiating to the back. On initial evaluation patient is hemodynamically stable, afebrile, she is well-appearing at this time. She has tenderness to palpation of the epigastric and right upper quadrant region with voluntary guarding, no rebound, rigidity, or distention. No peritonitic findings. Remainder of exam benign. Differential diagnosis includes but is not limited to cholelithiasis, cholecystitis, pancreatitis, choledocholithiasis, transaminitis, electrolyte abnormality, esophageal spasm, atypical presentation of ACS, among others. Based on these concerns, I ordered serum labs, cardiac workup, CT imaging, POCUS. ECG personally interpreted demonstrates normal sinus rhythm, rate 92, normal axis, normal IA and QTc, no STEMI. Patient was offered pain medication but declined at this time stating the pain is tolerable. Patient received LR, Zofran for treatment of symptoms initially. Labs personally reviewed demonstrate leukocytosis WBC 16.2, no anemia, normal platelets. Patient reports she has chronically elevated WBC, often 15 or 16. She states she has had rheumatologic workup among other workups and they do not have a reason for her WBC to be chronically elevated. PT/INR nonactionable, CMP nonactionable although patient does have slight elevation in AST at 40, ALT and alkaline phosphatase normal. Troponin undetectably low less than 0.01. In the setting of normal ECG, no chest pain, and patient's duration of symptoms the undetectable troponin is extremely reassuring against cardiac event. I do not believe serial troponin is indicated. Lipase normal at 136 reassuring against pancreatitis. [id number] ultrasound personally performed and interpreted demonstrates gallbladder with stones but no evidence of cholecystitis. On reassessment patient is still comfortable at this time and not requesting any pain medications. X-ray and CT imaging pending at the time of physician handoff. Patient handed off to Dr. Stokes at physician shift change for further management and disposition. <David Stokes MD - Last Filed: 08/08/24 11:53> Vital Signs: 08/08/24 05:56 08/08/24 06:00 08/08/24 07:20 Temperature 98.0 F Temperature Source Oral Pulse Rate 95 H 85 Pulse Rate [Left] 100 H Respiratory Rate 18 13 Blood Pressure 170/121 H 136/98 H Blood Pressure [Right Arm] 170/115 H Blood Pressure Mean [Right Arm] 133 Blood Pressure Source Blood Pressure Source [Right Arm] Automatic Cuff Blood Pressure Position 02 Sat by Pulse Oximetry 100 98 100 Oxygen Delivery Method Room Air Room Air 08/08/24 07:31 08/08/24 08:15 08/08/24 08:30 Temperature Temperature Source Pulse Rate 84 75 92 H Pulse Rate [Left] Respiratory Rate 13 22 20 Blood Pressure 151/97 H 165/106 H 155/102 H Blood Pressure [Right Arm] Blood Pressure Mean [Right Arm] Blood Pressure Source Blood Pressure Source [Right Arm] Blood Pressure Position 02 Sat by Pulse Oximetry 100 99 100 Oxygen Delivery Method Room Air 08/08/24 09:00 08/08/24 09:20 Temperature 97.9 F Temperature Source Oral Pulse Rate 91 H Pulse Rate [Left] Respiratory Rate 20 17 Blood Pressure 157/110 H 156/98 H Blood Pressure [Right Arm] Blood Pressure Mean [Right Arm] Blood Pressure Source Automatic Cuff Blood Pressure Source [Right Arm] Blood Pressure Position Sitting 02 Sat by Pulse Oximetry 100 Oxygen Delivery Method Room Air Room Air Lab Data Lab Results 08/08/24 05:54: WBC 16.2 H, RBC 4.70, Hgb 14.1, Hct 40.3, MCV 85.7, MCH 30.0, MCHC 35.0, RDW 13.2, Plt Count 374, MPV 9.4, Neut % (Auto) 58.1, Lymph % (Auto) 30.2, [place] % (Auto) 7.3, Eos % (Auto) 3.2, Baso % (Auto) 0.6, Neut # (Auto) 9.4 H, Lymph # (Auto) 4.9 H, [place] # (Auto) 1.2 H, Eos # (Auto) 0.5 H, Baso # (Auto) 0.1, Total Counted 100, Neutrophils % (Manual) 53, Lymphocytes % (Manual) 36, Monocytes % (Manual) 7, Eosinophils % (Manual) 4 H, Platelet Estimate Normal, RBC Morphology Normal, PT 9.4 L, INR 0.82 L, Sodium 137, Potassium 4.0, Chloride 106, Carbon Dioxide 23, Anion Gap 12.0, BUN 13, Creatinine 0.60, Estimated Creat Clear 162, Estimated GFR 108, Est GFR ( Amer) 130, Glucose 132 H, Calcium 9.3, Total Bilirubin 0.3, AST 40 H, ALT 42, Alkaline Phosphatase 100, Troponin I < 0.01, C-Reactive Protein 3.7, Total Protein 7.0, Albumin 4.0, Globulin 3.0, Albumin/Globulin Ratio 1.3, Lipase 136, HCG, Quant < 2 08/08/24 06:15: Urine Color Yellow, Urine Appearance Sl cloudy, Urine pH 6.0, Ur Specific [place] 1.025, Urine Protein Trace, Urine Glucose (UA) Negative, Urine Ketones Negative, Urine Blood 1+ A, Urine Nitrate Negative, Urine Bilirubin Negative, Urine Urobilinogen 0.2, Ur Leukocyte Esterase 1+ A, Urine RBC None, Urine WBC 5-10, Ur Squamous Epith Cells 50-100, Amorphous Sediment Trace, Urine Bacteria 2+ Orders (Tests/Meds): ED MEDICATIONS Discontinued Medications Generic Name Dose Route Start Last Admin Trade Name Lucero PRN Reason Stop Dose Admin Lactated Ringer's 1,000 mls @ 999 mls/hr 08/08/24 06:08 08/08/24 06:13 Lactated Ringer's 1000 Ml Bag IV 08/08/24 07:08 999 mls/hr .Q1H1M ONE Administration Iopamidol 75 ml 08/08/24 07:07 08/08/24 07:08 Iopamidol-370 (76%);100ml Bottle IV 08/08/24 07:08 75 ml ONCE ONE Administration Ondansetron HCl 4 mg 08/08/24 06:08 08/08/24 06:13 Ondansetron 4mg/2ml Vial IV 08/08/24 06:09 4 mg ONCE ONE Administration Sodium Chloride 10 ml 08/08/24 07:07 08/08/24 07:08 Sodium Chloride 0.9% 10ml Syr (Rad Only) IV 08/08/24 07:08 10 ml ONCE ONE Administration ORDERS Category Date Time Status CT abdomen pelvis w con Stat Cat Scan 08/08/24 05:45 Completed CXR --portable [XR chest portable] Stat Exams 08/08/24 05:48 Completed POCUS Point of Care (ER Only) Stat Exams 08/08/24 06:08 Completed C-Reactive Protein Stat Lab 04/15/25 05:54 Completed Complete Blood Count Auto Diff Stat Lab 08/08/24 05:54 Completed Comprehensive Metabolic Panel Stat Lab 08/08/24 05:54 Completed HCG,Quantitative Stat Lab 08/08/24 05:54 Completed Lipase Stat Lab 08/08/24 05:54 Completed Prothrombin Time INR Stat Lab 08/08/24 05:54 Completed Troponin I Stat Lab 08/08/24 05:54 Completed Urinalysis and Microscopic Stat Lab 08/08/24 06:15 Completed Urine Culture Stat Micro 08/08/24 06:15 Received HEART Score HEART Score: 2 Medical Decision Narrative: In summary, this 44-year-old female with comorbidities described in the HPI presents to the emergency department today with concerns of epigastric and right upper quadrant abdominal pain radiating to the back. On initial evaluation patient is hemodynamically stable, afebrile, she is well-appearing at this time. She has tenderness to palpation of the epigastric and right upper quadrant region with voluntary guarding, no rebound, rigidity, or distention. No peritonitic findings. Remainder of exam benign. Differential diagnosis includes but is not limited to cholelithiasis, cholecystitis, pancreatitis, choledocholithiasis, transaminitis, electrolyte abnormality, esophageal spasm, atypical presentation of ACS, among others. Based on these concerns, I ordered serum labs, cardiac workup, CT imaging, POCUS. ECG personally interpreted demonstrates normal sinus rhythm, rate 92, normal axis, normal IA and QTc, no STEMI. Patient was offered pain medication but declined at this time stating the pain is tolerable. Patient received LR, Zofran for treatment of symptoms initially. Labs personally reviewed demonstrate leukocytosis WBC 16.2, no anemia, normal platelets. Patient reports she has chronically elevated WBC, often 15 or 16. She states she has had rheumatologic workup among other workups and they do not have a reason for her WBC to be chronically elevated. PT/INR nonactionable, CMP nonactionable although patient does have slight elevation in AST at 40, ALT and alkaline phosphatase normal. Troponin undetectably low less than 0.01. In the setting of normal ECG, no chest pain, and patient's duration of symptoms the undetectable troponin is extremely reassuring against cardiac event. I do not believe serial troponin is indicated. Lipase normal at 136 reassuring against pancreatitis. [id number] ultrasound personally performed and interpreted demonstrates gallbladder with stones but no evidence of cholecystitis. On reassessment patient is still comfortable at this time and not requesting any pain medications. X-ray and CT imaging pending at the time of physician handoff. Patient handed off to Dr. Stokes at physician shift change for further management and disposition. David Stokes MD MEAGHAN: I assumed care of this patient from the previous emergency medicine physician. CT imaging revealed evidence of cholelithiasis. I again reviewed [id number] ultrasound imaging which reveals multiple gallstones however gallbladder wall thickness within normal limits and no pericholecystic fluid. Pain is manageable for patient at this time. Liver enzymes and bilirubin with no evidence of obstructive pattern. After shared decision making patient is stable for discharge at this time with outpatient follow-up with general surgery. Return precautions given. Procedures <Wilner Jackson MD - Last Filed: 08/08/24 06:46> Miscellaneous Procedure Procedure Performed: Limited RUQ ultrasound Indication: Abdominal pain, nausea Identified structures: -Gallbladder -Gallbladder wall -Common bile duct -Liver Findings: Sonographic Felipe sign: Present Gallstones: Present, numerous Sludge: Present Pericholecystic fluid: Absent Maximal GB wall thickness (mm): [normal is </= 3mm] Normal, 2.2 mm Common bile duct width (mm): [normal is </= 6mm] Normal, 4.9mm Gallbladder width (cm): [normal is < 4cm] Normal, 3.9 cm Gallbladder length (cm): [normal is < 10cm] Normal, 8.8 cm Impression: Cholelithiasis without obvious cholecystitis Images were saved to permanent archive The study was technically adequate CPT 01083-31 This study was performed by me, and I personally interpreted all images/videos. Based on my clinical judgement, these images were adequate and did not necessitate further imaging. Critical Care <Wilner Jackson MD - Last Filed: 08/08/24 06:46> Critical Care Time Critical Care Time: No
[2024-08-08 06:10] LABS: Chloride 106 mmol/L (98-107); Sodium 137 mmol/L (136-145)
[2024-08-08 06:13] LABS: Alanine Aminotransferase 42 U/L (12-78); Albumin/Globulin Ratio 1.3 (1.1-1.8); Alkaline Phosphatase 100 U/L (38-126); Aspartate Amino Transferase 40 U/L (14-36); Bilirubin,Total 0.3 mg/dl (0.2-1.3); Blood Urea Nitrogen 13 mg/dl (7-17); Calcium 9.3 mg/dl (8.4-10.2); Carbon Dioxide 23 mmol/L (22.0-30.0); Creatinine Clearance Estimated 162 mL/min (50-200); Estimated Glomerular Filt Rate 108 ml/min (>60); GFR (African American) 130 ML/MIN (>60); Glucose 132 mg/dl (74-100); Lipase 136 U/L (23-300)
[2024-08-08] MEDS: ONDANSETRON 4MG/2ML VIAL 4 MG IV (06:13)
[2024-08-08] MEDS: LACTATED RINGERS 1000ML 1,000 ML 999 ML IV (06:13)
[2024-08-08 06:15] LABS: INR 0.82 (0.9-1.1); Prothrombin Time 9.4 seconds (10.1-12.5)
[2024-08-08 06:18] LABS: Microscopic, Urine URINE MICROSCOPIC (MICROSCOPIC)
[2024-08-08 06:19] LABS: C-Reactive Protein 3.7 mg/L (0-4)
[2024-08-08 06:27] LABS: Troponin I < 0.01 ng/ml (0.00-0.034)
[2024-08-08 06:32] LABS: Appearance,Urine SL CLOUDY (Clear); Bilirubin,Urine Negative (Negative); Blood, Urine 1+ (Negative); Color,Urine YELLOW (Yellow); Glucose,Urine (UA) Negative (Negative); Ketones,Urine Negative (Negative); Leukocyte Esterase,Urine 1+ (Negative); Nitrate,Urine Negative (Negative); Protein,Urine TRACE (Negative); Specific Gravity, Urine 1.025 (1.005-1.030); Urobilinogen,Urine 0.2 EU/dl (0.2)
[2024-08-08 06:49] LABS: HCG,Quantitative < 2 mIU/ml (0-5.42)
[2024-08-08 06:55] LABS: Amorphous Sediment,Urine Trace /lpf; Bacteria,Urine 2+ /lpf; Squamous Epithelial Cell,Urine 50-100 #/hpf (0-5)
[2024-08-08] MEDS: SODIUM CHLORIDE 0.9% 10ML SYR (RAD ONLY) 10 ML IV (07:08)
[2024-08-08] MEDS: IOPAMIDOL-370 (76%);100ML BOTTLE 75 ML IV (07:08)
--- NOTE | 2024-08-08 07:20 | PC.NURSE ---
rounded on pt this morning. updated her on plan of care and that we were waiting on the CT results. no needs reported at this time
[2024-08-08 07:35] LABS: Eosinophils % 4 % (0-3); Lymphocytes % 36 % (10-50); Monocytes % 7 % (2-9); Neutrophils % 53 % (42-76); Total Cells Counted 100
[2024-08-08 07:36] LABS: Platelet Estimate Normal; RBC Morphology Normal
--- NOTE | 2024-08-08 08:41 | PC.NURSE ---
canceled lactic and trop order
--- NOTE | 2024-08-10 09:49 | PC.NURSE ---
I discussed the final urine culture results with . No change needed in treatment plan at this time.
== END 2024-08-08 09:33 | disposition home or self-care (01) ==
PROVIDERS: Emergency Medicine; Emergency Provider Emergency Medicine; PCP Nurse Practitioner Family
DX: R10.11 Right upper quadrant pain (principal); K80.20 Calculus of gallbladder without cholecystitis without obstruction; M54.6 Pain in thoracic spine
CPT/HCPCS: 71045; 74177; 80053; 81001; 83690; 84484; 84702; 85007; 85025; 85027; 85610; 86140; 87086; 93005; 96361; 96374; 99285; J2405; J7120; Q9967

== ENCOUNTER 2024-08-11 07:40 | Outpatient (CLI) | payer OTHER, SELFPAY ==
--- NOTE | 2024-08-11 07:30 | US_ITS ---
FINAL REPORT CLINICAL HISTORY: Right upper quad pain // gallstones seen on pocus/ct in ER / surgery on Wednesday to remove COMPARISON: None FINDINGS: RUQ ULTRASOUND: Sonographic images of the right upper quadrant were obtained. The pancreas is partially obscured.The liver has an unremarkable appearance. Multiple gallstones are present in the gallbladder. There is no evidence of biliary ductal dilatation.The common duct measures 4mm. Limited images of the right kidney are unremarkable. IMPRESSION: Multiple gallstones are present in the gallbladder without evidence of biliary ductal dilatation. Reviewed, Interpreted and Dictated by Peter Skelton MD Transcribed by Zainab Patel Authenticated and [facility]
== END 2024-08-11 23:59 | disposition home or self-care (01) ==
LOC: RAD 07:41
PROVIDERS: PCP Nurse Practitioner Family; Visit Provider Surgery
DX: R10.11 Right upper quadrant pain (principal)
CPT/HCPCS: 76705

== ENCOUNTER 2024-08-14 08:07 | Day surgery (SDC) | payer OTHER, SELFPAY ==
[2024-08-11 13:59] VITALS: BMI 33.1
[2024-08-14] VITALS (10 sets, daily range): BP systolic 104–141; BP diastolic 67–86; PULSE 71–85; RESP 16–18; TEMP 36.1–43; O2SAT 93–98; BMI 33.1
[2024-08-14] MEDS: LACTATED RINGERS 1000ML 1,000 ML 25 ML IV (08:54)
[2024-08-14] MEDS: CLINDAMYCIN PHOSPHATE/D5W 900 MG/50 ML PIGGYBACK 100 MG IV (09:03)
--- NOTE | 2024-08-14 09:07 | P.PNANES_ITS ---
[facility] Disclaimer: The information contained in this section may have been updated after the patient was seen, as this information can be updated by other users. Medical History Fatigue HLD (hyperlipidemia) Abnormal electrocardiogram [ECG] [EKG] HTN (hypertension), benign Hypertension Pyelonephritis of left kidney Trigger finger of right thumb Vitamin D deficiency Pleurisy Trochanteric bursitis, right hip Surgical History History of carpal tunnel surgery History of hernia repair No significant past surgical history Family History Other No significant family history Social History (Updated 08/14/24 @ 08:37 by Mickie Erickson RN) Smoking Status: Current every day smoker tobacco type: cigarettes packs per day: 1 second hand exposure: Yes alcohol intake: never substance use type: denies use current occupational status: employed Travel in the last 8 weeks: None household members: spouse and family housing: house current occupation: [employer] caffeine: Yes Have you lived/traveled outside [place] in past 30 days?: No Contact w/someone who lives/traveled outside US past 30 days?: No Exposure to someone with infectious disease in past 14 days?: No Do you have a fever (greater than 100.4 F or 38 C)?: No Have you tested positive for COVID-19: No Exposed to someone with COVID-19 in past 14 days?: No Do you have a sore throat?: No Do you have a cough?: No Do you have any weakness?: No Are you experiencing any nausea/vomitting?: No Do you have any diarrhea?: No Are you experiencing any unusual bleeding?: No Do you have any muscle aches/pain?: No Do you have any abdominal pain?: No Are you experiencing loss of taste or smell?: No [facility] Anesthesia Checklist Patient Identification Patient Identification: Verbal (Name & ) Structural Data Admitted From: Home Planned Operative Procedure/s: lap carey Consent for Planned Operative Procedure(s) Verified: Yes NPO Status Verified Time NPO: 00:00 Additional verifications Anesthesia Reactions: No Hx Blood Transfusions: No Blood Transfusion Reaction: No Airway Assessment Mallampati Score:: Class II C-Spine Mobility Assessed: Yes TMJ Mobility Assessed: Yes Dentition: Good Dentition Neurological Assessment Level of Consciousness: Awake, Alert and Appropriate Anesthesia Plan Anesthesia Risk discussed: Yes Anesthesia Plan: Verified ASA Class: II Anesthesia Type: General
[2024-08-14] MEDS: SODIUM CHLORIDE IRRIG SOLUTION 3,000 ML 25 ML IR (09:22)
[2024-08-14] MEDS: LIDOCAINE 1% 20ML MDV 20 ML (09:22)
[2024-08-14] MEDS: ROPIVACAINE 0.5% 30ML VIAL 150 MG (09:22)
--- NOTE | 2024-08-14 10:37 | P.OP_ITS ---
Date of procedure: 08/14/24 Pre-op Diagnosis:: Symptomatic gallstones Post-op Diagnosis:: Same Procedure performed:: Laparoscopic cholecystectomy Surgeon:: Davie Jacob MD Anesthesia: HÉCTOR Estimated blood loss (mL): 20 Operative findings:: She had extensive omental adhesions to anterior abdominal umbilical mesh from previous hernia repair. Gallbladder was somewhat thickened. There were numerous tiny gallstones. Operative note:: Consent was obtained patient was taken the operating room. She was given preoperative intravenous antibiotics. In the operating room she was placed in a supine position. General anesthesia was induced via endotracheal tube. Abdomen was prepped and draped in the standard surgical fashion. Due to the fact that she previously had laparoscopic ventral hernia repair 5 mm optical trocar was carefully inserted in left subcostal region. Intra-abdominal surveillance was carried out. There were noted to be omental adhesions to the mesh. 11 mm trocar was inserted in the epigastrium. Adhesions were taken down from the mesh using blunt dissection with a's ultrasonic robotic randall cleaning the anterior abdominal wall free of any adhesions. Lower abdominal trocar site required placement somewhat infraumbilical to the patient's right of the umbilicus. This was placed under laparoscopic visualization. She was then positioned in reverse Trendelenburg and left side down. A couple 5 mm trocars were inserted in the right upper abdomen. Gallbladder was grasped retracted anteriorly and superiorly over the dome of the liver. Blunt dissection was carried out the neck of the gallbladder bluntly incising the visceral peritoneum. This was incised along the lateral wall of the gallbladder using a's ultrasonic robotic randall. The cystic duct and cystic artery were clearly identified in the critical view of safety. The cystic duct was isolated, multiply clipped, and sharply divided. Cystic artery was carefully coagulated with a's ultrasonic, randall and divided. The gallbladder was dissected free from the liver in a retrograde fashion using Nikolas ultrasonic harmonic randall. Gallbladder was placed within an Endo Catch retrieval device removed and the peritoneal cavity at the right lower quadrant trocar site which required some extension of the fascial incision for delivery. Gallbladder fossa was then inspected for hemostasis which was assured. The right lower quadrant trocar site was then closed using the Roger-Blanco laparoscopic fascial closure device utilizing several interrupted 0 Ethibond sutures. Trocars were then removed and CO2 pneumoperitoneum was evacuated. Local anesthetic was infiltrated. Anterior rectus fascia at the epigastric trocar site was closed with 0 Vicryl suture. Skin incisions were closed with 4-0 Monocryl in a subcuticular fashion. Steri- Strips and dressings were applied. Condition: stable Disposition: PACU Complications:: None immediately apparent
--- NOTE | 2024-08-14 10:48 | P.PNANES_ITS ---
[facility] Anesthesia Record Part I Anesthesia Record I Intake, IV Amount: 800 Hydration: Adequate Estimated blood loss (mL): 10 Urine output (mL): 0 Blood Pressure: 124/76 SaO2: 95 Pulse Rate: 76 Airway Patency: Patent Respiratory Rate: 18 Temperature: 97.4 F Patient is:: Drowsy and Stable Stable to PACU at:: 10:53
[2024-08-14] MEDS: KETOROLAC 30MG/ML VIAL 30 MG IV (10:58)
[2024-08-14] MEDS: HYDROMORPHONE 2MG/ML SYRINGE 0.5 MG IV ×2 (11:03→11:10)
[2024-08-14] MEDS: MEPERIDINE 25MG/ML 1ML SYRINGE 25 MG IV (11:14)
[2024-08-14] MEDS: MORPHINE 2MG/ML SYRINGE 2 MG IV (11:14)
--- NOTE | 2024-08-15 10:15 | P.PNANES_ITS ---
[facility] Anesthesia Record Part II Anesthesia Record Part II Discharge Time: 11:03 Destination: Surgical Day Care (OP Surgery) PACU nurse assessment reviewed?: Yes Patient Condition:: Good Anesthesia Complications:: None Swallowing reflex intact?: Yes Airway Patency: Patent Cyanosis?: No Blood Pressure: 127/83 SaO2: 93 Respiratory Rate: 18 Pulse Rate: 79 Temperature: 97.5 F Mental Status: Alert & Oriented Pain level:: 4 Nausea and/or vomitting:: None Intake, IV Amount: 0 Hydration: Adequate
[2024-08-15 10:17] VITALS: BP 127/83; PULSE 79; RESP 18; TEMP 36.4; O2SAT 93
== END 2024-08-14 11:55 | disposition home or self-care (01) ==
PROVIDERS: PCP Nurse Practitioner Family; Visit Provider Surgery
PROC: 0FT44ZZ Resection of Gallbladder, Percutaneous Endoscopic Approach (ICD-10-PCS; CPT 47562; principal; 2024-08-14 09:00)
DX: K80.20 Calculus of gallbladder without cholecystitis without obstruction (principal)
CPT/HCPCS: 47562; 96374; J3490; J0736; J1100; J1171; J1200; J1885; J2175; J2250; J2270; J2405; J3010; J7120

== ENCOUNTER 2024-10-05 07:07 | Outpatient (CLI) | payer OTHER, SELFPAY ==
--- NOTE | 2024-10-05 07:20 | XR_ITS ---
FINAL REPORT CLINICAL HISTORY: bilateral hip pain, most pain in left hip, no known trauma COMPARISON: None FINDINGS: LEFT HIP: Two views of the left hip with an AP view of the pelvis demonstrate no acute fracture or dislocation. The joint spaces appear normal. The visualized bony structures are well aligned. No acute soft tissue abnormality is seen. There are postoperative changes from prior ventral hernia repair. IMPRESSION: No acute bony abnormality. Reviewed, Interpreted and Dictated by Peter Skelton MD Transcribed by Eden Mcclain Authenticated and [facility]
--- NOTE | 2024-10-05 07:20 | XR_ITS ---
FINAL REPORT CLINICAL HISTORY: bilateral hip pain, mostly in left hip, no known trauma COMPARISON: None FINDINGS: RIGHT HIP Two views of the right hip with an AP view of the pelvis demonstrate no acute fracture or dislocation. The joint spaces appear normal. The visualized bony structures are well aligned. No soft tissue abnormality is seen. IMPRESSION: No acute bony abnormality. Reviewed, Interpreted and Dictated by Peter Skelton MD Transcribed by Eden Mcclain Authenticated and [facility]
[2024-10-05 07:32] LABS: Basophils # 0.1 K/mm3 (0-0.2); Basophils % 0.6 % (0.1-2.0); Eosinophils # 0.4 Kmm3 (0.0-0.4); Eosinophils % 3.8 % (0.1-12.0); Hematocrit 42.4 % (37.0-47.0); Hemoglobin 14.5 g/dL (12.2-16.2); Immature Granulocytes # 0.06 10^3uL; Immature Granulocytes % 0.6 %; Lymphocytes % 28.4 % (10-50); Mean Corpuscular HGB Conc 34.2 g/dL (31.8-35.4); Mean Corpuscular Hemoglobin 29.4 pg (27.0-31.2); Mean Corpuscular Volume 85.8 fl (81-99); Mean Platelet Volume 9.5 fl (7.4-10.4); Monocytes % 9.1 % (1.7-9.3); Neutrophils # 6.1 K/mm3 (1.8-7.8); Neutrophils % 57.5 % (37.0-80.0); Nucleated Red Blood Cells # 0 10^3/uL; Nucleated Red Blood Cells % 0 %; Platelet Count 376 K/mm3 (142-424); Red Blood Count 4.94 M/mm3 (4.20-5.40); Red Cell Distribution Width 12.9 % (11.5-17.5); White Blood Count 10.6 K/mm3 (4.8-10.8)
--- OUTSIDE RECORDS SUMMARY | 2024-10-05 07:40 | XMS_ITS | Clinical Summary ---
Author Organization [facility] Address [address] [place] [address] Care Team Providers Care Security Systems Administrator Name Role Phone Unavailable Primary Care Provider Unavailabl e Social History Tobacco Use Types Packs/Day Years Used Date Smoking Tobacco: Never Assessed Comments Unknown Sex and Gender Information Value Date Recorded Sex Assigned at Not on file Legal Sex Female 11:14 AM EST Gender Identity Not on file Sexual Orientation Not on file Plan of Treatment Not on file
--- OUTSIDE RECORDS SUMMARY | 2024-10-05 07:40 | XMS_ITS | Clinical Summary ---
Author Organization [facility] Address [address] [place] [id number] Phone [email or web address] Care Team Providers Care Prefabricator Name Role Phone Unavailable Primary Care Provider Unavailabl e Allergies Active Allergy Reactions Criticality Noted Date Comments Sulfamethoxazole-Trimethoprim Rash Low 2019 Medications No known medications Active Problems No known active problems Social History Tobacco Use Types Packs/Day Years Used Date Smoking Tobacco: Never Assessed Intimate Partner Violence Answer Date R ecorded Insults You Not on file 08/10/2020 Threatens You Not on file 08/10/2020 Screams at You Not on file 08/10/2020 Physically Hurt Not on file 08/10/2020 Intimate Partner Violence Score Not on file 08/10/2020 Stress Answer Date Recorded Stress in your Life 0 06/04/2020 Dealing with Stress Not on file 06/04/2020 Comments Unknown Sex and Gender Information Value Date Recorded Sex Assigned at Not on file Legal Sex Female 10:01 AM CDT Gender Identity Not on file Sexual Orientation Not on file Last Filed Vital Signs Vital Sign Reading Time Taken Comments Blood Pressure - - Pulse - - Temperature 37 C (98.6 F) 01/06/2021 4:04 PM CDT Respiratory Rate 14 01/06/2021 4:04 PM CDT Oxygen Saturation - - Inhaled Oxygen Concentration - - Weight - - Height - - Body Mass Index - - Plan of Treatment Health Maintenance Due Date Last Done Comments Dental Cleaning/Exam 1978 Cervical Cancer Screening 1994 Hepatitis B Immunization (1 of 3 - 19+ 3-dose series) 1997 Tetanus Diphtheria and Pertu ssis Immunization (1 - Tdap) 1997 Breast Cancer Screening 02/13/2008 Colorectal Cancer Screening 02/13/2008 Covid-19 Immunization (1 - 2 024-25 season) 2023 Influenza Immunization (Seas on Ended) 2024 HIB Immunization Aged Out No longer e ligible based on patient's age to complete this topic HPV Immunization Aged Out No longer e ligible based on patient's age to complete this topic Hepatitis A Immunization Aged Out No longer eligible based on patient's age to complete this topic Pneumococcal: Ped (0 to 5 Yr s) and At-Risk Member (6 to 64 Yrs) Aged Out No longer e ligible based on patient's age to complete this topic Polio Immunization Aged Out No longer eligible based on patient's age to complete this topic [place]
--- OUTSIDE RECORDS SUMMARY | 2024-10-05 07:40 | XMS_ITS | Clinical Summary ---
Author Organization [facility] Address [address] [place] [address] Care Team Providers Care Instrument Processing Tech Name Role Phone Unavailable Primary Care Provider Unavailabl e Social History Tobacco Use Types Packs/Day Years Used Date Smoking Tobacco: Never Assessed Comments Unknown Sex and Gender Information Value Date Recorded Sex Assigned at Not on file Legal Sex Female 6:22 PM EDT Gender Identity Not on file Sexual Orientation Not on file Plan of Treatment Health Maintenance Due Date Last Done Comments [facility]-Depression Screening 1978 [facility]-Infant/Child/Adol SDOH Screenings 1978 [facility]- SDOH Screenings 02/13/1996 [facility]-Adult SDOH Screenings 02/13/1996 [facility]-DTaP,Tdap,and Td Vaccine s (1 - Tdap) 1997 [facility]-Hepatitis B Vaccines (1 of 3 - 19+ 3-dose series) 1997 [facility]-Pap Smear 1999 [facility]-Cervical Cancer Screening 02/13/2008 [facility]-HPV/Cotest 02/13/2008 CT Colonography 2023 Colonoscopy 2023 FIT-DNA 2023 FIT 2023 FOBT 2023 Sigmoidoscopy 2023 [facility]-Colorectal Cancer Screening 2023 [id number] Vaccine (3 - 2023- season) 2023 03/26/2021, 03/05/2021 [facility]-Influenza Vaccine (Seas[place] n Ended) 2024 [facility]-Zoster Vaccines (1 of 2) 02/13/2028 HPV Vaccines Aged Out No longer eligi ble based on patient's age to complete this topic [facility]-HIB Vaccines Aged Out No longer e ligible based on patient's age to complete this topic [facility]-Hepatitis A Vaccines Aged Out No longer eligible based on patient's age to complete this topic [facility]-IPV Vaccines Aged Out No longer e ligible based on patient's age to complete this topic [facility]-Pneumococcal Vaccine: Pediatrics (0 to 5 Years) and At-Risk Patients (6 to 49 Years) Aged Out No longer eligible b ased on patient's age to complete this topic [facility]-Rotavirus Vaccines Aged Out No lo nger eligible based on patient's age to complete this topic Insurance [employer]
--- OUTSIDE RECORDS SUMMARY | 2024-10-05 07:40 | XMS_ITS | Data Portability ---
Author Organization [facility]OS[facility] Address [address] [address] [place] [address] Assessment Encounter Date Assessment Date Assessment LastModified by Organization Details LastModified Time 01/23/2019 01/23/2019 A: 1. Urinary tract infection with fever, back pain. Bactrim allergy. Has done well with cefin in past. discussed tx options. Will start ceftin leonor. cx pending. push fluids. IB/APAP as directed. Return to clinic or primary provider if not improving in 2 days, report to ER if fever spikes, back pain worsens or experience vomiting. [email or web address] Not available 01/23/2019 14:31:51 Plan of Treatment Reminders Order Date Submit Date Provider Last Modified By Organization Details Last Modified Time Details Appointments None recorded. Lab beta-HCG, quantitativ e, serum or plasma 2020 [facility], [address] [place] [address], [id number], 10:58:34 FSH (follicle-s timulating hormone), serum 2020 [facility], [address] [place] [address], [address], 11:01:30 lh (luteinizin g hormone), serum 2020 [facility], [address] [place] [address], [address], 11:01:25 prolactin, serum 2020 021 [facility], [address] [place] [address], [address], 11:01:28 estradiol, serum 2020 021 [facility], [address] [place] [address], [address], 11:01:24 TSH, serum or plasma 2020 [facility], [address] [place] [address], [address], 11:01:31 T4, free, serum 2020 [facility], [address] [place] [address], [address], 11:01:27 CMP, serum or plasma 2020 021 [facility], [address] [place] [address], [address], 10:50:05 urinalysis, dipstick 2018 019 [email or web address] Not available 9 13:18:34 urinalysis, microscopic 2018 019 [facility], [address] [place] [address], [address], 9 18:00:43 urinalysis, dipstick [address] [facility], [address] [place] [address], [address], 9 11:19:13 culture, urine 2018 019 [facility], [address] [place] [address], [address], 9 12:09:21 Referral None recorded. Procedures None recorded. Surgeries None recorded. Imaging MAMMO, screening, tomosynthes is, bilateral, w/ CAD 2020 021 [facility], [address] [place], [address], 1 13:48:19 MAMMO, diagnostic, tomosynthes is, bilateral, w/ CAD 2018 019 [facility], [address] [place], [address], 9 15:40:45 US, breast, unilateral 2018 019 [facility], [address] [place], [address], 9 15:41:13 Medication Orders cefuroxime axetil 250 mg tablet 2018 [email or web address] [place] [address] Pharmacy, [address] [place] [address], [id number], 08:04:39 cefuroxime axetil 250 mg tablet 2018 [address] [facility], [address] [place] [address], [id number], 08:04:39 Patient TargetsNo targets recorded. Patient Instructions Encounter Date Encounter Id Patient Instructions Last Modified By Organization Details Last Modified Time 11/01/2018 [id number] painful urinatio n (dysuria): care instructions [email or web address] Not available 11/01/2018 11:19:13 eating healthy foods: care instructions [email or web address] Not available 11/01/2018 11:19:13 body mass index: care instructions [email or web address] Not available 11/01/2018 11:19:13 Body Mass Index: Care [email or web address] Not available 11/01/2018 11:19:13 learning about healthy weight [email or web address] Not available 11/01/2018 11:19:13 Reason for Referral None Reported. Results Created Date Observation Date Name Description Value Unit Range Abnormal Flag Note LastModifiedBy Organization Detail LastModifiedTime 11/02/19 19 11/01/2018 urina lysis , dipst ick Unknown Analyte Straw Not Available [facility] [address], [address], 11/01/2018 11:16:40 11/02/19 19 11/01/2018 urina lysis , dipst ick Unknown Analyte Cloudy Not Available [facility] [address], [address], 11/01/2018 11:16:40 11/02/1911/01/2018 urina lysis , dipst ick Unknown Analyte 1.010 Not Available [facility] [address], [address], 11/01/2018 11:16:40 11/02/19 19 11/01/2018 urina lysis , dipst ick Unknown Analyte 7.0 Not Available [facility] [address], [address], 11/01/2018 11:16:40 11/02/19 19 11/01/2018 urina lysis , dipst ick Unknown Analyte 500 Patt/ul (++) Not Available [facility] [address], [address], 11/01/2018 11:16:40 11/02/1911/01/2018 urina lysis , dipst ick Unknown Analyte Negati ve Not Available [facility] [address], [address], 11/01/2018 11:16:40 11/02/19 19 11/01/2018 urina lysis , dipst ick Unknown Analyte Trace Not Available [facility] [address], [address], 11/01/2018 11:16:40 11/02/1911/01/2018 urina lysis , dipst ick Unknown Analyte Normal Not Available [facility] [address] [place], [address], 11/01/2018 11:16:40 11/02/1911/01/2018 urina lysis , dipst ick Unknown Analyte Negati ve Not Available [facility] [address] [place] [address], [address], 11/01/2018 11:16:40 11/02/1911/01/2018 urina lysis , dipst ick Unknown Analyte Normal Not Available [facility] [address] [place] [address], [address], 11/01/2018 11:16:40 11/02/1911/01/2018 urina lysis , dipst ick Unknown Analyte Negati ve Not Available [facility] [address] [place] [address], [address], 11/01/2018 11:16:40 11/02/1911/01/2018 urina lysis , dipst ick Unknown Analyte 50 Marco A/ul Not Available [facility] [address] [place] [address], [address], 11/01/2018 11:16:40 11/02/1911/01/2018 urina lysis , dipst ick Unknown Analyte Automa manuela Not Available [facility] [address] [place] [address], [address], 11/01/2018 11:16:40 11/02/1911/01/2018 urina lysis , dipst ick Unknown Analyte Clean Catch Not Available [facility] [address] [place] [address], [address], 11/01/2018 11:16:40 11/02/1911/01/2018 cultu re, urine results Sourc e: CCUR Colle cted: 11/01 11:18 Site: Eddie bj : 11/01 14:57 URINE SCREE N(CUL TURE) FINAL 11/03 10:42 11/02 COLON Y COUNT : > 100,0 00 CFU/M L Proba ble Gram Negat diloln Bacil deandra. ID and sensi tivit y in progr ess. 11/03 See [place] [facility] Resul t(s) Below ISOLA JAKUB AND SENSI TIVIT Y RESUL TS [place] [facility] 01 Esche danny a coli __ [place] [facility] ORG# 01 ANTIB IOTIC S WILLIAM INT __ Amox/ K Clav' ate(c ) <=8/4 S Amp/S ulbac multani(c ) >16/8 R Ampic illin >16 R Cefaz andria <=2 S Cefta zidim e <=1 S Ceftr iaxon e <=1 S Cefur oxime <=4 S Cipro floxa georgette <=1 S Ertap enem <=0.5 S Genta micin <=4 S Levof loxac in <=2 S Nitro furan toin <=32 S Piper acill in/Ta z <= 16 S Tetra cycli ne <=4 S Tobra mycin <=4 S Trime th/Anderson lfa <=2/3 8 S Trime thopr im <=8 S Not Available [facility], [place], [address], 11/03/2018 10:42:52 01/24/20 19 01/23/2019 urina lysis , micro scopi c mucus, urine TRACE /lpf normal Not Available [facility] [address] [place] [address], [address], 01/23/2019 18:00:43 01/24/20 19 01/23/2019 urina lysis , micro scopi c WBC, urine 30-50 0-5/hp f abnormal Not Available [facility] [address] [place] [address], [address], 01/23/2019 18:00:43 01/24/2001/23/2019 urina lysis , micro scopi c RBC, urine 3-10 0-2/hp f abnormal Not Available [facility] [address] [place] [address], [address], 01/23/2019 18:00:43 01/24/20 19 01/23/2019 urina lysis , micro scopi c squamous epi. cells 5-10 0-5/hp f abnormal Not Available [facility] [address] [place] [address], [address], 01/23/2019 18:00:43 01/24/20 19 01/23/2019 urina lysis , micro scopi c transitional epi. cells OCCASI ONAL /hpf normal Not Available [facility] [address] [place] [address], [address], 01/23/2019 18:00:43 01/24/2001/23/2019 urina lysis , micro scopi c bacteria 2+ /hpf abnormal Not Available [facility] [address] [place] [address], [address], 01/23/2019 18:00:43 01/24/2001/23/2019 urina lysis , micro scopi c reflex culture see below normal Resul ts indic ate a urina ry tract infec tion. Cultu re added . Not Available [facility] [address] [place] [address], [address], 01/23/2019 18:00:43 01/24/20 19 01/23/2019 cultu re, urine results [facility] e: CCUR Colle cted: 01/23 18:00 Site: Campbellkiarra bj : 01/23 18:00 URINE SCREE N(CUL TURE) FINAL 01/25 14:52 01/25 No signi fican t growt h. Not Available [facility] [address] [place], [address], 01/25/2019 14:52:59 01/24/2001/23/2019 urina lysis , dipst ick Unknown Analyte Janet Not Available [facility] [address], [address], 01/23/2019 13:04:29 01/24/20 19 01/23/2019 urina lysis , dipst ick Unknown Analyte Slight ly Hazy Not Available [facility] [address], [address], 01/23/2019 13:04:29 01/24/20 19 01/23/2019 urina lysis , dipst ick Unknown Analyte 1.005 Not Available [facility] [address], [address], 01/23/2019 13:04:29 01/24/20 19 01/23/2019 urina lysis , dipst ick Unknown Analyte 1.003 - 1.035 Not Available [facility] [address], [address], 01/23/2019 13:04:29 01/24/20 19 01/23/2019 urina lysis , dipst ick Unknown Analyte 5.0 Not Available [facility] [address], [address], 01/23/2019 13:04:01/24/2001/23/2019 urina lysis , dipst ick Unknown Analyte 5.0 - 8.0 Not Available [facility] [address], [address], 01/23/2019 13:04:01/24/2001/23/2019 urina lysis , dipst ick Unknown Analyte 500 Patt/ul (++) Not Available [facility] [address], [address], 01/23/2019 13:04:01/24/2001/23/2019 urina lysis , dipst ick Unknown Analyte Negati ve Not Available [facility] [address], [address], 01/23/2019 13:04:01/24/2001/23/2019 urina lysis , dipst ick Unknown Analyte Negati ve Not Available [facility] [address], [address], 01/23/2019 13:04:01/24/2001/23/2019 urina lysis , dipst ick Unknown Analyte Negati ve Not Available [facility] [address], [address], 01/23/2019 13:04:01/24/2001/23/2019 urina lysis , dipst ick Unknown Analyte 30 mg/dl (+) Not Available [facility] [address], [address], 01/23/2019 13:04:01/24/2001/23/2019 urina lysis , dipst ick Unknown Analyte Negati ve - Trace Not Available [facility] [address] [place], [address], 01/23/2019 13:04:01/24/2001/23/2019 urina lysis , dipst ick Unknown Analyte Normal Not Available [facility] [place] [address] [place] [address], [address], 01/23/2019 13:04:01/24/2001/23/2019 urina lysis , dipst ick Unknown Analyte normal Not Available [facility] [place] [address] [place] [address], [address], 01/23/2019 13:04:01/24/2001/23/2019 urina lysis , dipst ick Unknown Analyte Negati ve Not Available [facility] [address], [address], 01/23/2019 13:04:01/24/2001/23/2019 urina lysis , dipst ick Unknown Analyte Negati ve Not Available [facility] [address], [address], 01/23/2019 13:04:01/24/2001/23/2019 urina lysis , dipst ick Unknown Analyte Normal Not Available [facility] [address], [address], 01/23/2019 13:04:01/24/2001/23/2019 urina lysis , dipst ick Unknown Analyte Normal - 1 mg/dl Not Available [facility] [address], [address], 01/23/2019 13:04:01/24/2001/23/2019 urina lysis , dipst ick Unknown Analyte Negati ve Not Available [facility] [address] [place], [address], 01/23/2019 13:04:29 01/24/20 19 01/23/2019 urina lysis , dipst ick Unknown Analyte Negati ve Not Available [facility] [address] [place], [address], 01/23/2019 13:04:29 01/24/20 19 01/23/2019 urina lysis , dipst ick Unknown Analyte 250 Marco A/ul Not Available [facility] [place] [address] [place] [address], [address], 01/23/2019 13:04:29 01/24/20 19 01/23/2019 urina lysis , dipst ick Unknown Analyte Negati ve Not Available [facility] [place] [address] [place] [address], [address], 01/23/2019 13:04:29 01/24/20 19 01/23/2019 urina lysis , dipst ick Unknown Analyte Visual Not Available [facility] [place] [address] [place], [address], 01/23/2019 13:04:29 03/11/20 21 03/11/2021 COMP. METAB OLIC PANEL glucose 95 mg/dL 74-100 normal Not Available [facility] [address] [place] [address], [address], 03/11/2021 10:50:05 03/11/20 21 03/11/2021 COMP. METAB OLIC PANEL blood urea nitrogen 10 mg/dL 6-20 normal Not Available [facility] [address] [place] [address], [address], 03/11/2021 10:50:05 03/11/20 21 03/11/2021 COMP. METAB OLIC PANEL creatinine 0.62 mg/dL 0.50-0 .95 normal Not Available [facility] [address] [place] [address], [address], 03/11/2021 10:50:05 03/11/20 21 03/11/2021 COMP. METAB OLIC PANEL BUN/creatini ne ratio 16 (calc ) 10-20 normal Not Available [facility] [address] [place] [address], [address], 03/11/2021 10:50:05 03/11/20 21 03/11/2021 COMP. METAB OLIC PANEL sodium 137 mmol/ L 136-14 5 normal Not Available [facility] [address] [place] [address], [address], 03/11/2021 10:50:05 03/11/20 21 03/11/2021 COMP. METAB OLIC PANEL potassium 4.5 mmol/ L 3.4-5. 0 normal Not Available [facility] [address] [place] [address], [address], 03/11/2021 10:50:05 03/11/20 21 03/11/2021 COMP. METAB OLIC PANEL chloride 105 mmol/ L 98-107 normal Not Available [facility] [address] [place] [address], [address], 03/11/2021 10:50:05 03/11/20 21 03/11/2021 COMP. METAB OLIC PANEL carbon dioxide 22 mmol/ L 22-31 normal Not Available [facility] [address] [place] [address], [address], 03/11/2021 10:50:05 03/11/20 21 03/11/2021 COMP. METAB OLIC PANEL anion gap 10 (calc ) 7-25 normal Not Available [facility] [address] [place] [address], [address], 03/11/2021 10:50:05 03/11/20 21 03/11/2021 COMP. METAB OLIC PANEL calcium 9.7 mg/dL 8.6-10 .2 normal Not Available [facility] [address] [place] [address], [address], 03/11/2021 10:50:05 03/11/20 21 03/11/2021 COMP. METAB OLIC PANEL total protein 6.7 g/dL 6.4-8. 3 normal Not Available [facility] [address] [place] [address], [address], 03/11/2021 10:50:05 03/11/20 21 03/11/2021 COMP. METAB OLIC PANEL albumin 4.5 g/dL 3.5-5. 2 normal Not Available [facility] [address] [place] [address], [address], 03/11/2021 10:50:05 03/11/20 21 03/11/2021 COMP. METAB OLIC PANEL globulin 2.2 g/dL_ (calc ) 1.5-4. 5 normal Not Available [facility] [address] [place] [address], [address], 03/11/2021 10:50:05 03/11/20 21 03/11/2021 COMP. METAB OLIC PANEL albumin/glob ulin ratio 2.0 (calc ) 1.1-2. 5 normal Not Available [facility] [address] [place] [address], [address], 03/11/2021 10:50:05 03/11/20 21 03/11/2021 COMP. METAB OLIC PANEL bilirubin, total 0.4 mg/dL 0.1-1. 2 normal Not Available [facility] [address] [place] [address], [address], 03/11/2021 10:50:05 03/11/20 21 03/11/2021 COMP. METAB OLIC PANEL alkaline phosphatase 95 U/L 35-106 normal Not Available [facility] [address] [place] [address], [address], 03/11/2021 10:50:05 03/11/20 21 03/11/2021 COMP. METAB OLIC PANEL AST 22 U/L 0-32 normal Not Available [facility] [address] [place] [address], [address], 03/11/2021 10:50:05 03/11/20 21 03/11/2021 COMP. METAB OLIC PANEL ALT 31 U/L 0-33 normal Not Available [facility] [address] [place] [address], [address], 03/11/2021 10:50:05 03/11/20 21 03/11/2021 COMP. METAB OLIC PANEL GFR 128 >= 60 normal Not Available [facility] [place], [address], 03/11/2021 10:50:05 03/11/20 21 03/11/2021 COMP. METAB OLIC PANEL GFR non- 110 >= 60 normal NOT E Chron ic kidne y disea se is defin ed as kidne y damag e for more than 3 month s or a GFR less than 60 mL/mi n/1.7 3 m2 for great er than 3 month s. This calcu latio n has not been valid ated in pregn ant women . For pedia tric patie nts refer to Franchesca delacruz Kidne y Found ation https ://salty w.keke ramirez.o rg/pr jailene ional s/KDO QI/gf r_cal culat orPed Not Available [facility] [address] [place], [address], 03/11/2021 10:50:05 03/11/20 21 03/11/2021 BETA HCG, PREGN SEJAL beta HCG, <5 mIU/m L 0-5 normal EXPEC MANUELA HCG LEVEL S WEEKS OF GESTA TION HCG LEVEL (mIU/ mL) 3 5.8 - 71.2 4 9.5 - 750 5 217 - 7138 6 158 - 31,79 5 7 3697 - 163,5 63 8 32,06 5 - 149,5 71 9 63,80 3 - 151,4 10 10 46,50 9 - 186,9 77 12 27,83 2 - 210,6 12 14 13,95 0 - 62,53 0 15 12,03 9 - 70,97 1 16 9040 - 56,45 1 17 8175 - 55,86 8 18 8099 - 58,17 6 Not Available [facility] [address] [place], [address], 03/11/2021 10:58:34 03/11/20 21 03/11/2021 ESTRA DIOL estradiol 108.0 pg/mL 0.0-39 8.0 normal Refer ence range is based on non-p regna nt women . NOTE: Due to the risk of cross -reac tivit y, the Magda Estra diol assay used by our labor atory carolann d not be order ed when monit oring estra diol level s in patie nts being treat ed with Fulve stran t. An alter marta metho d such as LC/MS , which is not expec manuela to show cross -reac tivit y to Fulve stran tcarolann d be used to measu re estra diol destiny ntrat ions. Stero id drugs may inter fere with this test. ESTRA DIOL EXPEC MANUELA VALUE S HEALT HY WOMEN : FOLLI CULAR PHASE 12.4 - 233 pg/mL OVULA TION PHASE 41.0 - 398 pg/mL LUTEA L PHASE 22.3 - 341 pg/mL POSTM ENOPA USE < 5.0 - 138 pg/mL HEALT HY PREGN ANT WOMEN : 1st TRIME STER 154 - 3243 pg/mL 2nd TRIME STER 1561 - 21,28 0 pg/mL 3rd TRIME STER 8525 - > 30,00 0 pg/mL . Not Available [facility] [address] [place], [address], 03/11/2021 11:01:23 03/11/20 21 03/11/2021 LUTEN IZING HORMO NE lutenizing hormone 47.7 mIU/m L 1.0-95 .6 normal LH EXPEC MANUELA VALUE S WOMEN : FOLLI CULAR PHASE 2.4-1 2.6 mIU/m L OVULA TION PHASE 14.0- 95.6 mIU/m L LUTEA L PHASE 1.0-1 1.4 mIU/m L POSTM ENOPA USE 7.7-5 8.5 mIU/m L . Not Available [facility] [address] [place], [address], 03/11/2021 11:01:25 03/11/20 21 03/11/2021 T4,FR EE T4,free 1.29 NG/dL 0.93-1 .70 normal Not Available [facility] [address] [place], [address], 03/11/2021 11:01:27 03/11/20 21 03/11/2021 PROLA CTIN prolactin 10.10 NG/mL 4.79-2 3.30 normal Refer ence range is based on non-p regna nt women . Not Available [facility] [address] [place], [address], 03/11/2021 11:01:28 03/11/20 21 03/11/2021 FOLLI BEEBTO STIM. HORMO NE follicle stim. hormone 21.6 mIU/m L 1.7-13 4.8 normal FSH EXPEC MANUELA VALUE S FEMAL ES: FOLLI CULAR PHASE : 3.5 - 12.5 MIU/M L OVULA TION PHASE : 4.7 - 21.5 MIU/M L LUTEA L PHASE : 1.7 - 7.7 MIU/M L POST MENOP AUSE: 25.8 - 134.8 MIU/M L . Not Available [facility] [address] [place], [address], 03/11/2021 11:01:30 03/11/20 21 03/11/2021 TSH TSH 2.950 uIU/m L 0.270- 4.200 normal Not Available [facility] [address] [place], [address], 03/11/2021 11:01:31 07/09/20 19 11/01/2018 MAMMO , diagn ostic , tomos ynthe sis, bilat eral, w/ CAD No observ ation record ed. [email or web address] [facility] [address], [place], [address], 11/01/2018 12:20:04 11/02/19 19 11/01/2018 MAMMO , diagn ostic , tomos ynthe sis, bilat eral, w/ CAD [facility] [address] [facility] [place] [address] Patien t Name: LORE monzon : 1979 Nyasia monzon Orderi ng Provid er: ARMANDO GRIJALVA EXAM DATE: 2018 EXAM: MG MILEY DIAG RIANA MAMMOG JUNIOR INDICA TION: This is a 38-yea r-old woman referr ed for diagno stic evalua tion for palpab le areas of concer n in the right breast and axilla . PROCED URE: Multis lice imagin g of both breast s was perfor med includ ing standa rd views using Hologi c Seleni a Dimens ions tomosy nthesi s equipm ent (3D mammog galilea) . 2D images were create d from the 3D datase t using C-View softwa re. Images were evalua manuela with the assist ance of Comput er Aided Detect ion (CAD) softwa re. Right breast ultras ound was perfor med. COMPAR COLTON: None FINDIN GS: There are scatte red fibrog landul ar elemen ts in the breast s. There is no mass or cluste r of calcif icatio ns. No karen ectura l distor tion. Ultras ound of the right breast was perfor med with specia l attent ion to the area of concer n in the retroa reolar and periar eolar region . This demons trates nondil ated fluid- filled ducts in the retroa reolar region . No intrad uctal mass is visual ized. There is an 8 x 7 x 2 mm cyst at the 12:00 positi on 5 cm from the nipple . Ultras ound of the right axilla demons trates a 17 x 8 mm lymph node. This mainta ins benign sonogr aphic featur es includ ing echoge kia/fa tty hilum. This corres ponds with a benign -appea ring lymph node visibl e on mammog shankar in the axilla . There is no suspic ious mass, fluid collec tion or eviden ce of lympha denopa thy. IMPRES EDDIE: BI-RAD S catego ry 2, Benign . 1. Small cyst in the upper right breast . 2. Benign -appea ring right axilla ry lymph nodes are consis tent with normal or physio logic reacti ve nodes. 3. No eviden ce of malign sejal. Screen ing mammog shankar are recomm ended in one year. Findin gs and recomm endati ons were discus sed with the nyasia monzon. Interp reted By: Balwinder mchugh MD Electr onical ly Signed By: Balwinder mchugh MD on 11/02/19 19 3:40 PM [email or web address] [facility] [address], [address], 11/01/2018 16:03:14 11/02/19 19 11/01/2018 [place] [address] [address] Nyasia t Name: LORE Alcazar Nyasia monzon : 1979 [place] t Orderi ng Provid er: ARMANDO GRIJALVA EXAM DATE: 2018 EXAM: US BREAST RT COMPLE TE INDICA TION: This is a 38-yea r-old woman referr ed for diagno stic evalua tion for palpab le areas of concer n in the right breast and axilla . PROCED URE: Multis lice imagin g of both breast s was perfor med includ ing standa rd views using Hologi c Seleni a Dimens ions tomosy nthesi s equipm ent (3D mammog galilea) . 2D images were create d from the 3D datase t using C-View softwa re. Images were evalua manuela with the assist ance of Comput er Aided Detect ion (CAD) softwa re. Right breast ultras ound was perfor med. COMPAR COLTON: None FINDIN GS: There are scatte red fibrog landul ar elemen ts in the breast s. There is no mass or cluste r of calcif icatio ns. No karen ectura l distor tion. Ultras ound of the right breast was perfor med with specia l attent ion to the area of concer n in the retroa reolar and periar eolar region . This demons trates nondil ated fluid- filled ducts in the retroa reolar region . No intrad uctal mass is visual ized. There is an 8 x 7 x 2 mm cyst at the 12:00 positi on 5 cm from the nipple . Ultras ound of the right axilla demons trates a 17 x 8 mm lymph node. This mainta ins benign sonogr aphic featur es includ ing echoge kia/fa tty hilum. This corres ponds with a benign -appea ring lymph node visibl e on mammog shankar in the axilla . There is no suspic ious mass, fluid collec tion or eviden ce of lympha denopa thy. IMPRES EDDIE: BI-RAD S catego ry 2, Benign . 1. Small cyst in the upper right breast . 2. Benign -appea ring right axilla ry lymph nodes are consis tent with normal or physio logic reacti ve nodes. 3. No eviden ce of malign sejal. Screen ing mammog shankar are recomm ended in one year. Findin gs and recomm endati ons were discus sed with the nyasia monzon. Interp reted By: Balwinder mchugh MD Electr onical ly Signed By: Balwinder mchugh MD on 11/02/19 19 3:41 PM [email or web address] [facility] [address] [place] [address], [phone], 11/01/2018 16:03:14 11/02/19 19 11/01/2018 , [place] [address] [place] [address] Nyasia monzon Name: EBENMAHESHAKIRA monzon : 1979 Patien t Orderi ng Provid er: ARMANDO GRIJALVA EXAM DATE: 2018 EXAM: US BREAST RT COMPLE TE INDICA TION: This is a 38-yea r-old woman referr ed for diagno stic evalua tion for palpab le areas of concer n in the right breast and axilla . PROCED URE: Multis lice imagin g of both breast s was perfor med includ ing standa rd views using Hologi c Seleni a Dimens ions tomosy nthesi s equipm ent (3D mammog galilea) . 2D images were create d from the 3D datase t using C-View softwa re. Images were evalua manuela with the assist ance of Comput er Aided Detect ion (CAD) softwa re. Right breast ultras ound was perfor med. COMPAR COLTON: None FINDIN GS: There are scatte red fibrog landul ar elemen ts in the breast s. There is no mass or cluste r of calcif icatio ns. No karen ectura l distor tion. Ultras ound of the right breast was perfor med with specia l attent ion to the area of concer n in the retroa reolar and periar eolar region . This demons trates nondil ated fluid- filled ducts in the retroa reolar region . No intrad uctal mass is visual ized. There is an 8 x 7 x 2 mm cyst at the 12:00 positi on 5 cm from the nipple . Ultras ound of the right axilla demons trates a 17 x 8 mm lymph node. This mainta ins benign sonogr aphic featur es includ ing echoge kia/fa tty hilum. This corres ponds with a benign -appea ring lymph node visibl e on mammog shankar in the axilla . There is no suspic ious mass, fluid collec tion or eviden ce of lympha denopa thy. IMPRES EDDIE: BI-RAD S catego ry 2, Benign . 1. Small cyst in the upper right breast . 2. Benign -appea ring right axilla ry lymph nodes are consis tent with normal or physio logic reacti ve nodes. 3. No eviden ce of malign sejal. Screen ing mammog shankar are recomm ended in one year. Findin gs and recomm endati ons were discus sed with the nyasia monzon. Interp reted By: Balwinder mchugh MD Electr onical ly Signed By: Balwinder mchugh MD on 11/02/19 3:41 PM [email or web address] [facility] [address] [place] [address], [phone], 11/01/2018 16:03:14 03/11/20 21 03/11/2021 MAMMO , scree anthony, tomos ynthe sis, bilat eral, w/ CAD [facility] [address] [place] [address] [place] [address] Nyasia monzon Name: LORE monzon : 1979 Age: 41 years Patinola t Orderi ng Provid er: ARMANDO GRIJALVA EXAM DATE: 2020 EXAM: MG SCREEN ING RIANA MAMMOG JUNIOR INDICA TION: Routin e screen ing. PROCED URE: Multis lice imagin g of both breast s was perfor med in standa rd projec tions using Hologi c Seleni a Dimens ions tomosy nthesi s equipm ent (3D mammog galilea) . 2D images were create d from the 3D datase t using C-View softwa re. The study was read with the assist ance of Comput er Aided Detect ion (CAD) softwa re. COMPAR COLTON: This was compar ed with previo us mammog shankar dated 11/01/18 , 5, 06/26/08 . FINDIN GS: Breast Compos ition: There are scatte red fibrog landul ar elemen ts in the breast s. Right Breast : There is no suspic ious mass or cluste r of calcif icatio ns. No karen ectura l distor tion. Left Breast : There is no suspic ious mass or cluste r of calcif icatio ns. No karen ectura l distor tion. Axilla e: Morpho logica lly normal axilla ry lymph nodes. IMPRES EDDIE: There is no mammog raphic eviden ce of breast malign sejal. RECOMM ENDATI ON: 1: Screen ing 3D/Leonel osynth esis Bilate ral mammog junior in 1 Year BI-RAD S catego ry: BI-RAD S catego ry 1, Negati ve. Result s were mailed or given to the nyasia Garcia reted By: Edgar hoover MD Electr onical ly Signed By: Edgar hoover MD on 2020 1:[email or web address] Radiology [facility] [address] [place], [phone], 03/11/2021 13:49:38 Result Notes None recorded. Problems No Known Problems Procedures Surgical History Date Name Laterality Status Provider Name and Address Organization Details Recorded Time 1 Carpal tunnel surgery completed [facility] 03/11/2021 08:27:18 3 Hernia Repair completed [facility] 11/02/2018 11:33:43 2 Tubal Ligation completed [facility] 11/02/2018 11:33:57 Imaging Results None recorded. Procedure Notes None recorded. Medical Equipment None Reported. Allergies Allergen ID Allergen Name Allergen Category Reaction Reaction Severity Criticality Documentation Date Start Date Code Code System Note Provider Name and Address Organization Details Recorded Time 717727 Bactrim medicatio n Not available Not available Not available 11/01/2018 00653 9 RxNorm [facility] 9 10:40:56 Medications Name Sig Start Date Stop Date Status Note LastModified by Organization Details LastModified Time cefuroxime axetil 250 mg tablet Take 1 tablet twice a day by oral route with meals for 10 days. 03/11 completed Not Available Not Available Not Available Vitals Date Recorded Body height Body mass index (BMI) Body weight Heart rate Systolic blood pressure Diastolic blood pressure Provider Name and Address Organization Details Last Updated DateTime 9 162.56 cm 34.8 kg/m2 98342.2 5 g 88 /min 116 mm[Hg] 84 mm[Hg] [facility] 9 10:42:21 Date Recorded Body height Heart rate Systolic blood pressure Diastolic blood pressure Provider Name and Address Organization Details Last Updated DateTime 11/11/2018 162.56 cm 88 /min 126 mm[Hg] 90 mm[Hg] Itzel Fernandes [facility] 11/11/2018 11:19:20 Date Recorded Body height Body mass index (BMI) Body weight Body temperature Heart rate Respiratory rate Oxygen saturation Oxygen saturation in Arterial blood by Pulse oximetry Systolic blood pressure Diastolic blood pressure Provider Name and Address Organization Details Last Updated DateTime 9 162.56 cm 33.8 kg/m2 34453.7 g 98.9 [degF] 100 /min 20 /min 99 % 99 % 128 mm[Hg] 78 mm[Hg] Neisha Burns [facility] 9 12:56:32 Date Recorded Body weight Heart rate Oxygen saturation Oxygen saturation in Arterial blood by Pulse oximetry Systolic blood pressure Diastolic blood pressure Provider Name and Address Organization Details Last Updated DateTime 1 801678. 69 g 90 /min 98 % 98 % 134 mm[Hg] 88 mm[Hg] Koby Maverick [facility] 1 08:28:25 Social History Question Answer Notes LastModified by Revivioizat ion Details LastModified Time Tobacco Smoking Status [facility] 11:37:00 What Is Your Level Of Caffeine Consumption? Moderate [email or web address] Information not available 11/02/2018 How Much Tobacco Do You Chew? None [email or web address] Information not available 11/02/2018 What Type Of Diet Are You Following? REGULAR [email or web address] Information not available 11/02/2018 Which Illicit Or Recreational Drugs Have You Used? None [email or web address] Information not available 11/02/2018 Hard Of Hearing Or Deaf In One Or Both Ears? No [email or web address] Information not available 11/02/2018 Legally Blind In One Or Both Eyes? No Information no t available 11/02/2018 Live Alone Or With Others? With Others Information not available 11/02/2018 What Was The Date Of Your Most Recent Tobacco Screening? 03/11/2021 Information not available 03/11/2021 Performs Monthly Self-breast Exam? Yes [email or web address] Information no t available 11/02/2018 Seat Belts Used Routinely Yes [email or web address] Information not available 11/02/2018 Are You Sexually Active? Yes [email or web address] Information not available 11/02/2018 Smoke Alarm In Home Yes [email or web address] Information not available 11/02/2018 Are You Passively Exposed To Smoke? Yes [email or web address] Information no t available 11/02/2018 How Much Tobacco Do You Smoke? 1 PPD [email or web address] Information not available 11/02/2018 Do You Use Sunscreen Routinely? Yes [email or web address] Information not available 11/02/2018 Has Tobacco Cessation Counseling Been Provided? Yes [email or web address] Information not available 11/02/2018 On What Date Was Tobacco Cessation Counseling Provided? 11/11/2018 [email or web address] Information not available 11/11/2018 How Many Years Have You Smoked Tobacco? 10 [email or web address] Information not available 11/02/2018 Sex: Unknown Functional Status Question Answer Note LastModified by Organizat ion Details LastModified Time What is your level of alcohol consumption? Occasional [email or web address] Information not available 11/02/2018 Are you currently employed? Yes [email or web address] Information not available 11/02/2018 Are you able to care for yourself? Yes [email or web address] Information not available 11/02/2018 What is your exercise level? Occasional [email or web address] Information not available 11/02/2018 Mental Status None recorded. Family History Relationship Description Onset Age of this Age Resolved Age Notes LastModified by Organization Details LastModified Time Maternal Grandmother Diabetes mellitus [email or web address] Not available 2018 11:34:39 Maternal Grandfather Heart disease [email or web address] Not available 2018 11:34:47 Maternal Grandfather Family history of malignant neoplasm Not available 2018 11:34:58 Paternal Grandmother Diabetes mellitus [email or web address] Not available 2018 11:35:11 Paternal Grandmother Family history of malignant neoplasm [email or web address] Not available 2018 11:35:20 Paternal Grandfather Heart disease [email or web address] Not available 2018 11:35:37 Paternal Grandfather Hypertensive disorder [email or web address] Not available 2018 11:35:47 Mother Diabetes mellitus Not available 2018 11:35:56 Mother Hypertensive disorder [email or web address] Not available 2018 11:36:04 Medical History No medical history recorded. Gynecological HistoryNo gynecological history recorded. Obstetrics History GPAL:G 0 P 0 0 0 0 Immunizations Vaccine Type Date Status Note Provider Nam e and Address Organization Details Recorded Time SARS-COV-2 (COVID-19) vaccine, UNSPECIFIED 03/05/2021 completed Koby [facility] 03/11/2021 08:26:44 Past Encounters Encounter ID Performer Location Encounter Start Date Encounter Closed Date Diagnosis/Indication Diagnosis SNOMED-CT Code Diagnosis ICD10 Code Diagnosis Note [id number] ARIEL HONG PA-C [facility] [address] [place] [address] 1 11/01/2018 10:31:30 11/01/2018 15:12:24 Body mass index 30+ - obesity 797199357 Z68.34 Dysuria 17359727 R30.0 Acute urin margarito tract infection 842226723 N39.0 Meds as directed, push fluids, notify me of any problems. Mass of right breast 624 8638336 1065170 N63.41 Will get diagnostic mammogram/ [place] [id number] ARIEL HONG PA-C [facility] [address] [place] [id number] 1 11/11/2018 11:07:55 11/21/2018 16:05:45 Mastodynia of right breast 1259461889 7857246 N64.4 This is improved. Discussed this may have been an infection/ abscess, she did have purulent drainage that is now gone along with the swelling. She will continue to monitor carefully. [id number] RIAZ SANFORD PA-C [facility] [address] [place] [address] 01/23/2019 12:35:11 01/23/2019 14:35:33 Acute urinary tract infection 451883222 N39.0 [id number] ARIEL HONG PA-C [facility] [address] [address] 03/11/2021 08:22:33 03/11/2021 08:46:16 Adult health examination 484131222 Z00.00 Labs today. Schedule mammogram. Amenorrhea 99214843 N91. 2 Screening for malignant neoplasm of breast 015894325 Z12.39 Health Concerns Section Related Observation LastModified by Organization Detai ls LastModified Time None Recorded Concern Status LastModified by Organization Details LastModified Time None Recorded Advance Directives Directive None Recorded Payers Insurance Date Sequence Insurance Name Policy Number Policy Mcdaniels Covered Member ID Mcdaniels Member ID Guarantor Name 03/18/2021 1 [place] [id number] Henna Vang [id number] Henna Vang 03/11/2021 1 [employer] (PP[place]) [id number] Luca Vang [id number] Henna Vang 03/11/2021 1 [place] [id number] Henna Vang [id number] Henna Vang Notes Date Note Type Note Provider Name and Address Organization Details Recorded Time 11/01/2018 text/html Pt comes in to g et established. She feels like she has a UTI, which is a common problem for her. Dysuria, urinary frequency. No hematuria or abd pain. She also feels a lump in her right breast, behind nipple area. This is mildly tender. This is a new finding. ARIEL HONG PA-C [address] [place], [address], [facility] 11/14/2018 10:31:45 11/11/2018 text/html Pt comes in to recheck R breast . The swelling she had is gone, the firm nodule getting softer and improving. Mammogram and US showed no suspicious findings. ARIEL HONG PA-C [address] [place], [address], [facility] 11/20/2018 21:12:02 01/23/2019 text/html started 2d ago w ith low back pain, inc frequency/urgency, dysuria, s/c/aches, fever, R flank pain. Nausea. Denies dysuria, hematuria, vomiting. prone to UTI. Bactrim allergy. Today notes soa described as feel weak, winded with walking. Denies current SOA, CP. RIAZ SANFORD PA-C [address] [place], [address], [facility] 01/23/2019 14:32:57 03/11/2021 text/html Pt comes in for recheck. She did bloodwork through work, HgA1c was 5.5%. Triglycerides were 283, cholesterol was normal. Glucose was normal.She has a small knot on right breast.She had amenorrhea for 6 months, then menses returned. Her hidradenitis pretty much went away during this time, but returned with menses. ARIEL HONG PA-C [address] [place], [address], [facility] 03/11/2021 09:04:37 OBGyn Episode No OBEpisode recorded.
--- OUTSIDE RECORDS SUMMARY | 2024-10-05 07:40 | XMS_ITS | Data Portability ---
Author Organization [facility] Brandon Taylor Address [address] [place] [address] Assessment Encounter Date Assessment Date Assessment LastModified [...] services or health-related services through telecommunication technology. Not available 07/28/2024 16:00:16 Plan of Treatment Reminders Order Date Submit Date Provider Last Modified By Organization Details Last Modified Time Details Appointments None recorded. Lab None recorded. Referral None recorded. Procedures None recorded. Surgeries None recorded. Imaging None recorded. Medication Orders Vivelle-Dot 0.05 mg/24 hr transdermal patch 2024 025 [facility], [address] [place] [address], [id number], 18:14:00 progesteron e micronized 100 mg capsule 2024 025 [facility], [address] [place] [address], [id number], 18:13:59 Patient TargetsNo targets recorded. Patient Instructions Encounter Date Encounter Id Patient Instructions Last Modified By Organization Details Last Modified Time 07/28/2024 [id number] We discussed the varied nature of symptoms [...] in large population based studies (E3N from [facility]) not to carry as much risk of [...] We discussed CV risk, specifically VTE and NJ/Stroke. We discussed that estrogen increases blood clotting, especially if given orally. Transdermal estrogen seems to have decreased VTE risk, though the data is not definitive on this. Given that fact I use transdermal E2 whenever possible. NJ/Stroke risk is increased in WH[facility] with CEE, [...] we will discuss other options for consideration. [email or web address] Not available 07/28/2024 16:15:06 Reason for Referral None Reported. Problems Name Problem SNOMED Code Status Onset Date Resolution Date Notes Provider Name and Address Organization Details Recorded Time Menopausal syndrome 503739128 Active 025 David morel [place] [employer] Taylor 14:05:42 Problem Notes None recorded. Procedures Surgical History Date Name Laterality Status Provider Name and Address Organization Details Recorded Time MENOPAUSE [place] [address] [place] [address] [facility] [address], [place], [address], [facility] 07/28/2024 16:11:02 4 Date of [...] Not available Not available Not available 07/27/2024 [id number] RxNorm ADDIE Irby 5 14:09:19 Medications Name [...] Social History Question Answer Notes LastModified by Organization D etails LastModified Time Tobacco Smoking Status Not Available [facility] 07/26/2024 21: 08:20 How Many Years Have You Smoked Tobacco? 25 [email or web address] Information not available 07/26/2024 Sex: Female Functional Status Question Answer Note LastModified by Organizat ion Details LastModified Time Do you use any illicit or recreational drugs? No [email or web address] Information not available 07/26/2024 What is your level of alcohol consumption? Occasional [email or web address] Information not available 07/26/2024 Do you or have you ever used e-cigarettes or vape? Never used electronic cigarettes [email or web address] Information not available 07/26/2024 Mental Status None recorded. Family History Relationship [...] N Drug/Latex Allergies/Reactions N Breast Cancer N Lung Disease N Dermatologic Disorders N Defects or Inherited Disease N Breast Problem N Gestational Diabetes N Hematologic disorders N Anesthesia Complications N History of STI N Deep Vein Thrombosis N Polycystic ovary syndrome N Anxiety Disorder N Autoimmune disease N Arthritis N Polyps N Infertility N Acid Reflux (GERD) N History of abnormal pap N Cancer N Stroke N Varicosities N Neurologic/Epilepsy N Endometriosis N High Cholesterol [...] SNOMED-CT Code Diagnosis ICD10 Code Diagnosis Note [id number] LUIS [place]TMAN [place] [address] [place] [address] [address] 07/26/2024 21:09:10 08/01/2024 13:58:43 Depression screening 153834430 Z13.31 Reviewed the completed PHQ-9 questionna yoana, which quantitati vely assesses the presence and severity of depressive symptoms. The patient's total score was calculated and discussed. Interpreta tion of Results:Ne gative (Score indicates no depression ): The PHQ-9 results indicated no significan t depressive symptoms at this time. Based on the assessment , no further management for depression is required. Menopausal syndrome 1237 43849 N95.1 yes The patient is up to date on pap screening. yes The patient is up to date on mammo screening. no The patient is up to date on colon cancer screening. not applicable The patient is up to date on DEXA screening. Health Concerns Section Related Observation LastModified by Organization Detai ls LastModified Time None Recorded Concern Status LastModified by Organization Details LastModified Time None Recorded Advance Directives Directive None Recorded Payers Insurance Date Sequence Insurance Name Policy Number Policy Mcdaniels Covered Member ID Mcdaniels Member ID Guarantor Name 08/01/2024 1 [facility] [id number] Henna Vang [id number] Henna Vang Notes Date Note Type Note [...] of [place]. [place] [address] [place] [address] [facility] [address], [place], [address], ADDIE - [facility] 07/28/2024 16:15:53 OBGyn Episode No OBEpisode recorded.
--- OUTSIDE RECORDS SUMMARY | 2024-10-05 07:40 | XMS_ITS | Clinical Summary ---
Author Organization [facility] Address [address] [employer] [facility] [address] [place] [address] Phone Care Team Providers Care Gill Tender Name Role Phone Unavailable Primary Care Provider Unavailabl e Allergies Active Allergy Reactions Criticality Noted Date Comments Cefdinir Other (See Comments) 10/25/2023 Hypertension Sulfa (Sulfonamide Antibiotics) Hives,Shortness Of Breath 12/09/2023 Sulfamethoxazole-Trimetho prim Rash Low 11/25/2019 Trimethoprim Hives Low 10/25/2023 Medications PARoxetine (PAXIL CR) 12.5 mg Oral Tablet Sustained Release 24 hrIndications:a nxiety with depression Take 12.5 mg by mouth daily. Indications: anxiousness associated with depression Active phentermine 37.5 mg Oral CapsuleIndicati ons:weight loss management for obese patient (bmi >= 30) Take 37.5 mg by mouth every morning. Indications: weight loss management for an obese person Active estradioL (ESTRACE) 0.01 % (0.1 mg/gram) Vagl CreamIndication s:Vaginal atrophy Do not use applicator. Blueberry size amount (0.5g) with fingertip application nightly. 42.5 g 1 4 Active Active Problems No known active problems Encounters Date Type Department Care Team Description 07/18/2024 Orders Only [facility] Nephrology [address] [place], [place] [id number] Mushtaq Maya MD Chronic kidney disease, stage II (mild) (Primary Dx) from Last 3 Months Social History Tobacco Use Types Packs/Day Years Used Date Smoking Tobacco: Every Day Cigarettes 0.5 27.4 Started: 1997 Smokeless Tobacco: Never Tobacco Cessation:Ready to Q uit: Not Asked; Counseling Given: Not Answered Alcohol Use Standard Drinks/Week Comments Yes 0 (1 standard drink = 0.6 oz pur e alcohol) very rarely Sexually Active Control Partners Comments Yes Comments No Sex and Gender Information Value Date Recorded Sex Assigned at Not on file Legal Sex Female 10:30 AM EDT Gender Identity Not on file Sexual Orientation Not on file Obstetrics History Para Term AB IAB SAB Ectopic Multiple Livin g Live Births 3 3 3 Date Outcome GA Total Labor Labor//3rd Weight Sex Type Anes PTL [place] A1 A5 Name Clin 996 Term Vag-Sp ont 000 Term Vag-Sp ont 002 Term Vag-Sp ont Last Filed Vital Signs Vital Sign Reading Time Taken Comments Blood Pressure 134/84 01/25/2024 3:52 PM EDT Pulse 81 01/25/2024 3:52 PM EDT Temperature 36.6 C (97.9 F) 01/25/2024 3:52 PM EDT Respiratory Rate - - Oxygen Saturation 97% 01/18/2024 8:38 AM EDT Inhaled Oxygen Concentration - - Weight 88 kg (194 lb) 01/25/2024 3:52 PM EDT Height 162.6 cm (5' 4 ) 01/25/2024 3:52 PM EDT Body Mass Index 33.3 01/25/2024 3:52 PM EDT Plan of Treatment Health Maintenance Due Date Last Done Comments Annual Wellness Exam 1981 DTaP/TDaP/Td (1 - Tdap) 1997 Hepatitis B Vaccine (1 of 3 - 19+ 3-dose series) 1997 Pneumococcal Vaccine 0-49 (1 of 2 - PCV) 1997 Cervical Cancer Screening 1999 Pap Smear 1999 HPV/Pap Cotest 02/13/2008 Breast Cancer Screening 2018 Cologuard 2023 Colon Cancer Screening 2023 Colonoscopy 2023 FIT 2023 Sigmoidoscopy 2023 Virtual Colonography 2023 COVID-19 Vaccine (3 - 2023-2 5 season) 2023 03/26/2021, 03/05/2021 Influenza Vaccine (Season Ended) 2024 Meningococcal B Vaccine Aged Out No l onger eligible based on patient's age to complete this topic Insurance ANTHEM PPO ANTHEM PPO ANTHEM PPO [id number]
[2024-10-05 08:20] LABS: Erythrocyte Sedimentation Rate 6 mm/hr (0-20)
[2024-10-05 08:26] LABS: Chol/HDL Ratio 4.5 (1-3.5); Cholesterol 158 mg/dl (140-200); HDL Cholesterol 35 mg/dl (40-60); Triglycerides 281 mg/dl (30-150); Uric Acid 6.2 mg/dl (2.5-6.2); VLDL Cholesterol 56 mg/dL (0-40)
[2024-10-05 08:36] LABS: Direct LDL Cholesterol 68.55 mg/dL (100-129)
[2024-10-05 08:43] LABS: 25-OH Vitamin D, Total 32.9 ng/mL (30-100)
[2024-10-05 08:57] LABS: Thyroid Stimulating Hormone 2.47 uIU/mL (0.465-4.68)
[2024-10-05 09:16] LABS: Vitamin B12 311 pg/mL (239-931)
[2024-10-06 08:32] LABS: Estradiol <5.0 pg/mL (.); FSH 55.3 mIU/mL (.); Progesterone 0.2 ng/mL (.); RA Latex Turbid. <10.0 IU/mL (<14.0)
[2024-10-09 13:10] LABS: Antinuclear Antibodies, IFA Positive (.)
== END 2024-10-05 23:59 | disposition home or self-care (01) ==
PROVIDERS: PCP Nurse Practitioner Family; Visit Provider Nurse Practitioner Family
DX: E78.5 Hyperlipidemia, unspecified (principal); R23.2 Flushing; D72.829 Elevated white blood cell count, unspecified; R53.83 Other fatigue; M25.551 Pain in right hip; M25.552 Pain in left hip; E55.9 Vitamin D deficiency, unspecified
CPT/HCPCS: 36415; 73502; 80061; 82306; 82607; 82670; 83001; 84144; 84443; 84550; 85025; 85651; 86038; 86431

== ENCOUNTER 2024-12-06 12:01 | Outpatient (CLI) | payer OTHER, SELFPAY ==
--- OUTSIDE RECORDS SUMMARY | 2024-12-08 12:10 | XMS_ITS | Clinical Summary ---
Author Organization [facility] Address [address] [place] [address] Care Team Providers Care Director Life Sales Name Role Phone Unavailable Primary Care Provider [...] 2023 Sigmoidoscopy 2023 [facility]-Colorectal Cancer Screening 2023 [id number] Vaccine (3 - 2023- season) 2023 03/26/2021, 03/05/2021 [facility]-Influenza Vaccine (#1) 2024 [facility]-Zoster Vaccines (1 of 2) 02/13/2028 [...]
--- OUTSIDE RECORDS SUMMARY | 2024-12-08 12:10 | XMS_ITS | Clinical Summary ---
Author Organization [facility] Address [address] [place] [address] Care Team Providers Care Manufacturing Teacher Name Role Phone Charisma Vinson APRN Primary Care Provider + [phone] Allergies Active Allergy Reactions Criticality Noted Date Comments Sulfamethoxazole-Trimethoprim Rash Low 2019 Medications estradiol (ESTRACE VAGINAL) 0.1 MG/GM vaginal cream Insert 0.5 g per vagina daily x 2 weeks and then twice weekly 42.5 g 2 11/17/2022 Active escitalopram (Lexapro) 20 MG tablet Take 1 tablet by mouth Daily. Take 1 tablet daily by mouth 30 tablet 11 06/11/2023 Active Active Problems Problem Noted Date Diagnosed Date Abnormal uterine bleeding (AUB) 02/09/2023 Overview (02/09/2023): Thyroid and routine labs checked 6 months ago with PCP and normal. She has never gone > 1 year without menses. Will do slynd (smoker) and vaginal estrogen. Did not tolerate slynd due to severe constipation which resolved once she stopped it. We discussed mirena would be a good option, she declines at this time. She has not had menses since November and will track cycles. Tubal ligation for contraception. U/S today reveals normal uterus and ovaries. Perimenopausal 02/09/2023 Overview (02/09/2023): Most significant symptom at this time is agitation, mood swings. We will try lexapro. Encouraged counseling which she declines at this time. Rectocele 02/09/2023 Overview (02/09/2023): With intermittent dyspareunia. She has been using vaginal estrogen for 3 months with no significant improvement. I encouraged pelvic floor PT but she declines at this time. Doing Kegel exercises at home Family History Medical History Relation Name Comments Hypertension Father Amandeep Sanders Breast cancer Maternal Aunt 1 Laura Ornelas Prostate cancer Maternal Aunt 2 Janay Estrada Ovarian cancer Maternal Grandmother Jessica Sanders Diabetes Mother Lorena Chisholm Relation Name Status Comments Father Amandeep Sanders Maternal Aunt 1 Laura Ornelas Maternal Aunt 2 Janay Estrada Maternal Grandmother Jessica Sanders Mother Lorena Chisholm Social History Tobacco Use Types Packs/Day Years Used Date Smoking Tobacco: Every Day Cigarettes 1 15 Tobacco Cessation:Ready to Q uit: Not Asked; Counseling Given: Not Answered Alcohol Use Standard Drinks/Week Comments Not Currently 0 (1 standard drink = 0.6 oz pur e alcohol) Abuse Screen Answer Date Recorded Unsafe at Home or Work/School Not on file Feels Threatened by Someone? Not on file 12/2022 Does Anyone Keep You from Co ntacting Others or Doint Things Outside the Home? Not on file 02/01/2023 Physical Sign of Abuse Present Not on file 1 Housing Stability Answer Date Recorded Current Living Arrangements Not on file 12/2022 Potentially Unsafe Housing Conditions Not on sonja e 02/01/2023 Family and Community Support Answer Chidi e Recorded Help with Day-to-Day Activities Not on file 02/01/2023 Lonely or Isolated Not on file 02/01/2023 Employment Answer Date Recorded Do you want help finding or keeping work or a lazaro b? Not on file 02/01/2023 Disabilities Answer Date Recorded Concentrating, Remembering, or Making Decisions Difficulty Not on file 02/01/2023 Doing Errands Independently Difficulty Not on fi le 02/01/2023 Education Answer Date Recorded Help with school or training? Not on file Preferred Language Not on file 02/01/2023 Comments No Sex and Gender Information Value Date Recorded Sex Assigned at Not on file Legal Sex Female 11:29 AM EDT Gender Identity Not on file Sexual Orientation Not on file Last Filed Vital Signs Vital Sign Reading Time Taken Comments Blood Pressure 118/70 02/09/2023 2:24 PM EDT Pulse - - Temperature - - Respiratory Rate - - Oxygen Saturation - - Inhaled Oxygen Concentration - - Weight 94.5 kg (208 lb 6.4 oz) 02/09/2023 2:24 P M EDT Height 162.6 cm (5' 4 ) 02/09/2023 2:24 PM EDT Body Mass Index 35.77 02/09/2023 2:24 PM EDT Plan of Treatment Health Maintenance Due Date Last Done Comments Pneumococcal Vaccine 0-49 (1 of 2 - PCV) 1997 TDAP/TD VACCINES (1 - Tdap) 1997 MAMMOGRAM 2018 ANNUAL PHYSICAL 11/17/2022 HEPATITIS C SCREENING 11/17/2022 COLOGUARD 2023 COLON CANCER SCREENING 5 YEA R SIGMOIDOSCOPY 2023 COLONOSCOPY 2023 COLORECTAL CANCER SCREENING 2023 CT COLONOGRAPHY 2023 FECAL OCCULT BLOOD TEST 2023 FIT Testing (1 year) 2023 Annual Gynecologic Pelvic and Breast Exam 11/19/2023 11/17/2022 COVID-19 Vaccine ( season) 12/26/202304/2020, 03/05/2021 INFLUENZA VACCINE 01/24/2025 Insurance PPO Care Teams Manufacturing Teacher Relationship Specialty Start Date End Date Charisma Vinson APRN PCP - General Internal Medicine 08/28/22
--- OUTSIDE RECORDS SUMMARY | 2024-12-08 12:11 | XMS_ITS | Clinical Summary ---
Author Organization [facility] Address [address] [place] [address] Phone Care Team Providers Care Boilermaker Name Role Phone Unavailable Primary Care Provider [...] Active Active Problems No known active problems Social History Tobacco Use Types Packs/Day Years Used Date Smoking Tobacco: Every Day Cigarettes 0.5 27.6 Started: 1997 Smokeless Tobacco: Never Tobacco Cessation:Ready [...] 3 3 Date Outcome GA Total Labor Labor/2nd/3rd Weight Sex Type Anes PTL Orquidea A1 [...] 5 season) 2023 03/26/2021, 03/05/2021 Influenza Vaccine (#1) 2024 Meningococcal B Vaccine Aged Out No l onger eligible based on patient's age to complete this topic Insurance ANTHEM PPO ANTHEM PPO ANTHEM PPO ANTHEM PPO
--- OUTSIDE RECORDS SUMMARY | 2024-12-08 12:11 | XMS_ITS | Clinical Summary ---
Author Organization [facility] Address [address] [place] [id number] Phone CareAlim [email or web address] Care Team Providers Care Pharmacology Professor Name Role Phone Unavailable Primary Care Provider [...] Health Maintenance Due Date Last Done Comments CT Colonography 1978 Cervical Cancer Screening Combo 1978 Colonoscopy 1978 Colorectal Cancer Screening Combo 1978 DNA Cologuard 1978 Dental Cleaning/Exam 1978 FIT or FOBT Test 1978 HPV / Cotest 1978 Pap Testing 1978 Sigmoidoscopy 1978 Hepatitis B Immunization (1 of 3 - 19+ 3-dose series) 1997 Tetanus Diphtheria and Pertu ssis Immunization (1 - Tdap) 1997 Breast Cancer Screening 02/13/2008 Covid-19 Immunization (1 - 2 024-25 season) 2023 Influenza Immunization (#1) 2024 HIB Immunization Aged Out No longer [...]
--- OUTSIDE RECORDS SUMMARY | 2024-12-08 12:11 | XMS_ITS | Clinical Summary ---
Author Organization [facility] Address [address] [place] [address], [address] [place] [address] Care Team Providers Care Perioperative Tech Name Role Phone Unavailable Primary Care [...]
== END 2024-12-06 23:59 | disposition home or self-care (01) ==
LOC: LAB.DROPOF 12-08 12:02
PROVIDERS: PCP Nurse Practitioner Family; Visit Provider Nurse Practitioner Family
DX: M54.50 Low back pain, unspecified (principal)
CPT/HCPCS: 87086

== ENCOUNTER 2024-12-29 11:28 | Outpatient (CLI) | payer OTHER, SELFPAY ==
--- OUTSIDE RECORDS SUMMARY | 2024-12-29 11:30 | XMS_ITS | Clinical Summary ---
Author Organization [facility] Address [address] [place] [address] Care Team Providers Care Drawing Tracer Name Role Phone Unavailable Primary Care Provider [...] 2023 Sigmoidoscopy 2023 [facility]-Colorectal Cancer Screening 2023 [id number] Vaccine (3 - 2023- season) 2023 03/26/2021, [...]
--- OUTSIDE RECORDS SUMMARY | 2024-12-29 11:30 | XMS_ITS | Clinical Summary ---
Author Organization [facility] Address [address] [place] [id number] Phone [email or web address] Care Team Providers Care Data Reporting Analyst Name Role Phone Unavailable Primary Care Provider [...] Covid-19 Immunization (1 - 2 024-25 season) 2024 Influenza Immunization (#1) 2024 HIB Immunization Aged [...]
--- OUTSIDE RECORDS SUMMARY | 2024-12-29 11:30 | XMS_ITS | Clinical Summary ---
Author Organization [facility] Address [address] [address] Phone Care Team Providers Care Safemaker Name Role Phone Unavailable Primary Care Provider [...] Date Smoking Tobacco: Every Day Cigarettes 0.5 27.7 Started: 1997 Smokeless Tobacco: Never Tobacco Cessation:Ready [...]
--- OUTSIDE RECORDS SUMMARY | 2024-12-29 11:30 | XMS_ITS | Clinical Summary ---
Author Organization [facility] Address [address] [place] [address], [address] [place] [address] Care Team Providers Care Lay Out Maker Name Role Phone Unavailable Primary Care Provider [...]
--- OUTSIDE RECORDS SUMMARY | 2024-12-29 11:30 | XMS_ITS | Clinical Summary ---
Author Organization [facility] Address [address] [place] [address] Care Team Providers Care Manager Distribution Name Role Phone Charisma Vinson APRN Primary Care Provider + [phone] Allergies Active Allergy Reactions Criticality Noted Date [...] Exam 11/19/2023 11/17/2022 COVID-19 Vaccine ( season) 12/25/202404/2020, 03/05/2021 INFLUENZA VACCINE 01/24/2025 Insurance PPO Care Teams Manager Distribution Relationship Specialty Start Date End Date Charisma Vinson APRN PCP - General Internal Medicine 08/28/22
[2024-12-29 11:55] LABS: Hematocrit 43.0 % (37.0-47.0); Hemoglobin 14.8 g/dL (12.2-16.2); Immature Granulocytes % 0.6 %; Mean Corpuscular HGB Conc 34.4 g/dL (31.8-35.4); Mean Corpuscular Hemoglobin 29.1 pg (27.0-31.2); Mean Corpuscular Volume 84.5 fl (81-99); Nucleated Red Blood Cells % 0 %; Platelet Count 379 K/mm3 (142-424); Red Blood Count 5.09 M/mm3 (4.20-5.40); Red Cell Distribution Width-SD 39.8 fL; White Blood Count 12.6 K/mm3 (4.8-10.8)
[2024-12-29 12:14] LABS: Albumin Level 4.6 g/dl (3.5-5.0); Chloride 109 mmol/L (98-107); Sodium 139 mmol/L (136-145)
[2024-12-29 12:15] LABS: Potassium 4.7 mmoL/L (3.5-5.1)
[2024-12-29 12:17] LABS: Alanine Aminotransferase 29 U/L (12-78); Albumin/Globulin Ratio 1.8 (1.1-1.8); Alkaline Phosphatase 86 U/L (38-126); Anion Gap 10.7 mEq/L (5-15); Aspartate Amino Transferase 30 U/L (14-36); Bilirubin,Total 0.4 mg/dl (0.2-1.3); Blood Urea Nitrogen 14 mg/dl (7-17); Carbon Dioxide 24 mmol/L (22.0-30.0); Creatinine,Serum 0.60 mg/dl (0.52-1.04); Estimated Glomerular Filt Rate 108 ml/min (>60); GFR (African American) 130 ML/MIN (>60); Globulin 2.5 g/dL (1.3-3.2); Total Protein,Serum 7.1 g/dl (6.3-8.2)
[2024-12-29 12:18] LABS: Calcium 10.2 mg/dl (8.4-10.2); Glucose 94 mg/dl (74-100)
[2024-12-29 12:49] LABS: Thyroid Stimulating Hormone 2.53 uIU/mL (0.465-4.68)
[2024-12-29 12:53] LABS: Ferritin 175 ng/ml (6.24-137)
[2024-12-29 13:20] LABS: C-Reactive Protein 2.8 mg/L (0-4)
[2024-12-30 08:14] LABS: Cytomegalovirus (CMV) Ab, IgG >10.00 U/mL (0.00-0.59); Cytomegalovirus (CMV) Ab, IgM <30.0 AU/mL (0.0-29.9)
[2025-01-01 16:15] LABS: EBV Nuclear Antigen Ab, IgG >600.0 U/mL (0.0-17.9)
== END 2024-12-29 23:59 | disposition home or self-care (01) ==
LOC: LAB 11:28
PROVIDERS: PCP Nurse Practitioner Family; Visit Provider Nurse Practitioner Family
DX: D72.829 Elevated white blood cell count, unspecified (principal); R53.83 Other fatigue
CPT/HCPCS: 36415; 80053; 82728; 82785; 84443; 85025; 86003; 86008; 86140; 86644; 86645; 86664; 86665; 87476

== ENCOUNTER 2025-01-24 08:59 | Outpatient (CLI) | payer OTHER, SELFPAY ==
--- NOTE | 2025-01-24 09:00 | MR_ITS ---
FINAL REPORT CLINICAL HISTORY: Bilateral hip pain and stiffness, lupus COMPARISON: None FINDINGS: Multiplanar MR imaging of the right hip was performed without contrast. There is no evidence of fracture or dislocation. There is moderate narrowing of the right hip joint space. The femoral head has a normal smooth contour. There is flattening of the acetabular labrum. There is no evidence of avascular necrosis. No evidence of osteochondral lesion. No bony mass is identified. No labral tear is identified. No significant joint effusion is seen. Mild edema at the insertion of the abductor tendons is well seen on images 17-20 of series 3. The musculature is intact. Incidental note is made of nabothian cyst in the lower uterine segment measuring 1.6 cm. IMPRESSION: Moderate changes of osteoarthritis with flattening of the acetabular labrum. Insertional tendinitis of the abductor tendons. Correlate with site of point tenderness. Reviewed, Interpreted and Dictated by Peter Skelton MD Transcribed by Eden Mcclain Authenticated and [facility]
--- OUTSIDE RECORDS SUMMARY | 2025-01-24 09:19 | XMS_ITS | Clinical Summary ---
Author Organization [facility] Address [address] [place] [address], [address] [place] [address] Care Team Providers Care Strip Picker Name Role Phone Unavailable Primary Care Provider [...]
--- OUTSIDE RECORDS SUMMARY | 2025-01-24 09:19 | XMS_ITS | Clinical Summary ---
Author Organization [facility] Address [address] [place] [address] Phone Care Team Providers Care Glass Breaker Name Role Phone Unavailable Primary Care Provider [...] Virtual Colonography 2023 COVID-19 Vaccine (3 - 2024-2 6 season) 2024 03/26/2021, 03/05/2021 Influenza Vaccine (#1) 2024 Meningococcal B Vaccine Aged Out No l onger eligible based on patient's age to complete this topic Insurance ANTHEM PPO ANTHEM PPO ANTHEM PPO ANTHEM PPO
--- OUTSIDE RECORDS SUMMARY | 2025-01-24 09:19 | XMS_ITS | Clinical Summary ---
[facility] Address [address] [place] [address] Care Team Providers Care Escrow Assistant Name Role Phone Charisma Vinson APRN Primary Care Provider + [phone] Allergies Active Allergy Reactions Criticality Noted Date [...] 11/17/2022 COLOGUARD 2023 COLON CANCER SCREENING 5 YEAR SIGMOIDOSCOPY 2023 COLONOSCOPY 2023 COLORECTAL CANCER SCREENING 2023 CT COLONOGRAPHY 2023 FECAL OCCULT BLOOD TEST 2023 FIT Testing (1 year) 2023 Annual Gynecologic Pelvic and Breast Exam 11/19/2023 11/17/2022 INFLUENZA VACCINE 11/24/2024 Insurance PPO Care Teams Escrow Assistant Relationship Specialty Start Date End Date Charisma Vinson APRN PCP - General Internal Medicine 08/28/22
--- OUTSIDE RECORDS SUMMARY | 2025-01-24 09:19 | XMS_ITS | Clinical Summary ---
Author Organization [facility] Address [address] [place] [address] Phone [email or web address] Care Team Providers Care Filling Operator Name Role Phone Unavailable Primary Care Provider [...] on patient's age to complete this topic Pneumococcal Immunization Aged Out No longer eligible based on patient's age to complete this topic Polio Immunization Aged Out No longer eligible based on patient's age to complete this topic [place]
--- OUTSIDE RECORDS SUMMARY | 2025-01-24 09:19 | XMS_ITS | Clinical Summary ---
Author Organization [facility] Address [address] [place] [address] Care Team Providers Care Ceo Ziff Davis Name Role Phone Unavailable Primary Care Provider [...] 2023 Sigmoidoscopy 2023 [facility]-Colorectal Cancer Screening 2023 [id number] Vaccine (3 - 2024- season) 2024 03/26/2021, 03/05/2021 [facility]-Influenza Vaccine (#1) 2024 [facility]-Zoster [...] patient's age to complete this topic Insurance AYIMA
--- NOTE | 2025-01-24 09:45 | MR_ITS ---
FINAL REPORT CLINICAL HISTORY: Bilateral hip pain and stiffness, lupus COMPARISON: None FINDINGS: Multiplanar MR imaging of the left hip was performed without contrast. There is no evidence of fracture or dislocation. There is moderate narrowing of the left hip joint space. Femoral head has a normal smooth contour. There is no evidence of avascular necrosis. No bony mass is identified. No evidence of osteochondral lesion. No labral tear is identified. No significant joint effusion is seen. The tendons are intact. The musculature is intact. No soft tissue mass or cyst is identified. IMPRESSION: Moderate narrowing left hip joint space. Reviewed, Interpreted and Dictated by Peter Skelton MD Transcribed by Eden Mcclain Authenticated and . [facility]
== END 2025-01-24 23:59 | disposition home or self-care (01) ==
PROVIDERS: PCP Nurse Practitioner Family; Visit Provider Nurse Practitioner Family
DX: M25.852 Other specified joint disorders, left hip (principal); M16.11 Unilateral primary osteoarthritis, right hip; M76.01 Gluteal tendinitis, right hip; M32.9 Systemic lupus erythematosus, unspecified; D72.829 Elevated white blood cell count, unspecified; R76.89 Other specified abnormal immunological findings in serum
CPT/HCPCS: 36415; 73721